=== PATIENT | male | born 1940 | race Caucasian/White ===

== ENCOUNTER 2020-01-21 10:25 | Outpatient (REF) | payer MEDICARE, SELFPAY ==
[2020-01-21 13:43] LABS: MANUAL DIFF FLAG NO
[2020-01-21 13:53] LABS: Basophils Absolute Auto 0.1 X10*3/uL (0.0-0.2); Basophils Percent Auto 0.7 % (0-2); Eosinophils Absolute Auto 0.1 X10*3/uL (0.0-0.4); Eosinophils Percent Auto 0.7 % (0-4); Hematocrit 42.9 % (42-52); Hemoglobin 13.6 g/dl (14.0-18.0); Imm Gran Abs Auto 0.02 X10*3/uL (0.00-0.03); Imm Gran Pct Auto 0.3 % (0.0-0.4); Lymphocytes Absolute Auto 1.9 X10*3/uL (1.2-4.9); Lymphocytes Percent Auto 27.9 % (20-40); Mean Corpuscular HGB Conc 31.7 g/dl (31.0-36.0); Mean Corpuscular Volume 81.9 fL (80-98); Mean Platelet Volume 10.6 fL (9.4-12.4); Monocytes Absolute Auto 0.7 X10*3/uL (0.1-1.2); Monocytes Percent Auto 10.2 % (2-11); Neutrophils Absolute Auto 4.1 X10*3/uL (2.0-8.3); Neutrophils Percent Auto 60.2 % (45-73); Platelet Count 311 X10*3/uL (160-400); Red Blood Count 5.24 X10*6/uL (4.60-5.80); Red Cell Distribution Width 14.4 % (11.0-16.0); White Blood Count 6.8 X10*3/uL (4.8-10.8)
[2020-01-21 14:15] LABS: Estimated Average Glucose 126 mg/dL
[2020-01-21 14:19] LABS: Anion Gap 15 (12-20); Blood Urea Nitrogen 19 mg/dL (9-16); Calcium 9.5 mg/dL (8.4-10.2); Carbon Dioxide 29 mmol/L (22-29); Chloride 98 mmol/L (96-108); Estimated Glomerular Filt Rate > 60; Glucose Random 100 mg/dL (60-115); Iron 73 mcg/dL (45-160); Percent Iron Saturation 18 % (15-50); Potassium 4.4 mmol/l (3.3-5.1); Sodium 138 mmol/L (135-145); Total Iron Binding Capacity 411 mcg/dL (228-428); Unsaturated Iron Binding 338 ug/dL
== END 2020-01-21 10:26 | disposition home or self-care (01) ==
LOC: HO.10HDL 10:25
PROVIDERS: PCP Internal Medicine; Visit Provider Internal Medicine
DX: E11.9 Type 2 diabetes mellitus without complications (principal); I25.10 Atherosclerotic heart disease of native coronary artery without angina pectoris; D64.9 Anemia, unspecified; I10 Essential (primary) hypertension
CPT/HCPCS: 36415; 80048; 83036; 83540; 85025

== ENCOUNTER 2020-09-08 08:30 | Outpatient (REF) | payer MEDICARE, SELFPAY ==
[2020-09-08 09:31] LABS: MANUAL DIFF FLAG NO
[2020-09-08 09:36] LABS: Basophils Absolute Auto 0.1 X10*3/uL (0.0-0.2); Basophils Percent Auto 0.8 % (0-2); Eosinophils Absolute Auto 0.1 X10*3/uL (0.0-0.4); Eosinophils Percent Auto 1.3 % (0-4); Hematocrit 41.6 % (42-52); Hemoglobin 13.2 g/dl (14.0-18.0); Imm Gran Abs Auto 0.03 X10*3/uL (0.00-0.03); Imm Gran Pct Auto 0.4 % (0.0-0.4); Lymphocytes Absolute Auto 2.6 X10*3/uL (1.2-4.9); Lymphocytes Percent Auto 30.8 % (20-40); Mean Corpuscular HGB Conc 31.7 g/dl (31.0-36.0); Mean Corpuscular Volume 82.1 fL (80-98); Monocytes Absolute Auto 0.8 X10*3/uL (0.1-1.2); Monocytes Percent Auto 9.9 % (2-11); Neutrophils Absolute Auto 4.8 X10*3/uL (2.0-8.3); Neutrophils Percent Auto 56.8 % (45-73); Platelet Count 276 X10*3/uL (160-400); Red Blood Count 5.07 X10*6/uL (4.60-5.80); Red Cell Distribution Width 14.7 % (11.0-16.0); White Blood Count 8.5 X10*3/uL (4.8-10.8)
[2020-09-08 10:11] LABS: Creatinine Urine 164.47 mg/dL
[2020-09-08 10:16] LABS: Alanine Aminotransferase 12 U/L (0-40); Albumin Level 4.1 g/dL (3.5-5.0); Alkaline Phosphatase 86 U/L (39-117); Anion Gap 15 (12-20); Aspartate Amino Transferase 15 U/L (5-37); Bilirubin Total 0.5 mg/dL (0.0-1.0); Blood Urea Nitrogen 18 mg/dL (9-16); Calcium 10.1 mg/dL (8.4-10.2); Carbon Dioxide 27 mmol/L (22-29); Chloride 103 mmol/L (96-108); Cholesterol 119 mg/dL; Estimated Glomerular Filt Rate > 60; Glucose Fasting 93 mg/dL (60-99); HDL Cholesterol 44 mg/dL; Iron 71 mcg/dL (45-160); LDL Cholesterol Calculated 58 mg/dl; Percent Iron Saturation 18 % (15-50); Potassium 4.3 mmol/L (3.3-5.1); Sodium 141 mmol/L (135-145); Total Iron Binding Capacity 400 mcg/dL (228-428); Triglycerides 87 mg/dL; Unsaturated Iron Binding 329 ug/dL
[2020-09-08 10:30] LABS: Vitamin D 25-OH Total 41.9 ng/mL (>30)
[2020-09-08 10:35] LABS: Estimated Average Glucose 126 mg/dL; Hemoglobin A1C 148.3616 umol/L
[2020-09-08 11:28] LABS: Vitamin B12 < 146 pg/mL (200-900)
== END 2020-09-08 08:31 | disposition home or self-care (01) ==
LOC: HO.LAB 08:30
PROVIDERS: PCP Internal Medicine; Visit Provider Internal Medicine
DX: Z12.5 Encounter for screening for malignant neoplasm of prostate (principal); I25.10 Atherosclerotic heart disease of native coronary artery without angina pectoris; I10 Essential (primary) hypertension; E78.00 Pure hypercholesterolemia, unspecified; N40.0 Benign prostatic hyperplasia without lower urinary tract symptoms; E11.9 Type 2 diabetes mellitus without complications; D64.9 Anemia, unspecified; E55.9 Vitamin D deficiency, unspecified
CPT/HCPCS: 36415; 80053; 80061; 82043; 82306; 82607; 83036; 83540; 84153; 85025

== ENCOUNTER 2021-05-29 09:41 | Outpatient (REF) | payer MEDICARE, SELFPAY ==
[2021-05-29 10:11] LABS: MANUAL DIFF FLAG NO
[2021-05-29 10:44] LABS: Basophils Absolute Auto 0.1 X10*3/uL (0.0-0.2); Basophils Percent Auto 0.8 % (0-2); Eosinophils Absolute Auto 0.1 X10*3/uL (0.0-0.4); Eosinophils Percent Auto 1.4 % (0-4); Hematocrit 41.8 % (42.0-52.0); Hemoglobin 13.2 g/dl (14.0-18.0); Imm Gran Abs Auto 0.03 X10*3/uL (0.00-0.03); Imm Gran Pct Auto 0.4 % (0.0-0.4); Lymphocytes Percent Auto 25.2 % (20-40); Mean Corpuscular HGB Conc 31.6 g/dl (31.0-36.0); Mean Corpuscular Hemoglobin 26.5 pg (27.0-33.0); Mean Corpuscular Volume 83.8 fL (80.0-98.0); Mean Platelet Volume 9.8 fL (9.4-12.4); Monocytes Absolute Auto 0.8 X10*3/uL (0.1-1.2); Neutrophils Absolute Auto 4.9 x10*3/uL (2.0-8.3); Neutrophils Percent Auto 62.2 % (45-73); Platelet Count 283 X10*3/uL (160-400); Red Blood Count 4.99 X10*6/uL (4.60-5.80); Red Cell Distribution Width 14.3 % (11.0-16.0); White Blood Count 7.9 X10*3/uL (4.8-10.8)
[2021-05-29 11:05] LABS: Estimated Average Glucose 123 mg/dL; Hemoglobin A1c % 5.9 %
[2021-05-29 11:23] LABS: Alanine Aminotransferase 17 U/L (0-40); Albumin Level 4.1 g/dL (3.5-5.0); Alkaline Phosphatase 83 U/L (39-117); Anion Gap 16 (12-20); Aspartate Amino Transferase 15 U/L (5-37); Bilirubin Total 0.8 mg/dL (0.0-1.0); Blood Urea Nitrogen 15 mg/dL (9-16); Calcium 9.5 mg/dL (8.4-10.2); Carbon Dioxide 27 mmol/L (22-29); Chloride 101 mmol/L (96-108); Estimated Glomerular Filt Rate > 60; Glucose Random 90 mg/dL (60-115); Potassium 4.3 mmol/L (3.3-5.1); Sodium 140 mmol/L (135-145); Total Protein 6.9 g/dL (6.5-8.0)
[2021-05-29 11:37] LABS: Vitamin B12 727 pg/mL (200-900)
[2021-05-29 12:28] LABS: Creatinine Urine 146.57 mg/dL; Microalbum/Creatinine Ratio Ur 4.7 ug/mg cr
== END 2021-05-29 09:42 | disposition home or self-care (01) ==
LOC: HO.LAB 09:41
PROVIDERS: PCP Internal Medicine; Visit Provider Internal Medicine
DX: E11.9 Type 2 diabetes mellitus without complications (principal); I10 Essential (primary) hypertension; I25.10 Atherosclerotic heart disease of native coronary artery without angina pectoris; E53.8 Deficiency of other specified B group vitamins
CPT/HCPCS: 36415; 80053; 82043; 82607; 83036; 85025

== ENCOUNTER 2021-07-13 20:02 | Emergency (ER) | payer MEDICARE, SELFPAY ==
--- NOTE | ~2021-07-13 | US_ITS ---
EXAMINATION: US ABDOMEN LIMITED CLINICAL INFORMATION: Right upper quadrant pain with food intake radiating to back. COMPARISON: None TECHNIQUE: Real-time imaging of the right upper quadrant abdominal viscera. FINDINGS: PANCREAS: The visualized proximal portion of the pancreas is unremarkable. The distal portion is obscured secondary to overlying bowel gas. LIVER: The liver is normal in size. The liver contour is normal. There is diffusely increased liver parenchymal echogenicity, consistent with hepatic steatosis. No focal hepatic lesion. There is no intrahepatic biliary duct dilatation seen. GALLBLADDER: Gallbladder is physiologically distended. No gallstones are seen. There is borderline gallbladder wall thickening. No pericholecystic fluid identified. Sonographic Arnett's sign is reportedly negative. COMMON BILE DUCT: Normal in caliber measuring 0.3 cm in diameter. RIGHT KIDNEY: No hydronephrosis. No renal calculi or focal parenchymal lesions. The kidney measures 9.9 cm in maximum dimension. FREE FLUID: None. US/US abdomen limited IMPRESSION: 1. No gallstones identified. Nonspecific borderline gallbladder wall thickening. 2. Increased hepatic echogenicity suspicious for steatosis.
--- NOTE | ~2021-07-13 | XR_ITS ---
EXAMINATION: XR CHEST CLINICAL INFORMATION: Chest pain COMPARISON: Chest x-ray 05/06/2014 TECHNIQUE: Frontal view of the chest was obtained. 9:45 PM FINDINGS: Status post median sternotomy. Heart size is normal. No pulmonary vascular congestion. Lungs are normally aerated. No pleural effusion or pneumothorax. XR/XR chest 1V IMPRESSION: No acute abnormality of chest.
[2021-07-13 21:25] VITALS: BP 120/75; PULSE 82; RESP 16; TEMP 37; O2SAT 98; BMI 28.3
--- NOTE | 2021-07-13 21:32 | ECG_ITS ---
Test Reason : CP Blood Pressure : / mmHG Vent. Rate : 078 BPM Atrial Rate : 078 BPM P-R Int : 188 ms QRS Dur : 086 ms QT Int : 364 ms P-R-T Axes : 050 046 003 degrees QTc Int : 414 ms Normal sinus rhythm Nonspecific ST changes Borderline ECG When compared with ECG of 11-JAN-2017 19:09, No significant changes seen Referred By: Generic ED Physician Electronically Signed By:Jay Gloria
[2021-07-13 21:43] LABS: MANUAL DIFF FLAG NO
[2021-07-13 22:03] LABS: Anion Gap 13 (12-20); Blood Urea Nitrogen 20 mg/dL (9-16); Calcium 9.6 mg/dL (8.4-10.2); Carbon Dioxide 29 mmol/L (22-29); Chloride 102 mmol/L (96-108); Creatinine Clr Calc Pharmacy 45.4; Estimated Glomerular Filt Rate > 60; Glucose Random 110 mg/dL (60-115); Potassium 3.7 mmol/L (3.3-5.1); Sodium 140 mmol/L (135-145); Troponin-I High Sensitivity < 3.5 ng/L (<3.5-35.0)
[2021-07-13 22:08] LABS: Basophils Absolute Auto 0.1 X10*3/uL (0.0-0.2); Basophils Percent Auto 1.3 % (0-2); Eosinophils Absolute Auto 0.1 X10*3/uL (0.0-0.4); Eosinophils Percent Auto 1.9 % (0-4); Hematocrit 39.8 % (42.0-52.0); Hemoglobin 12.9 g/dl (14.0-18.0); Imm Gran Abs Auto 0.02 X10*3/uL (0.00-0.03); Imm Gran Pct Auto 0.3 % (0.0-0.4); Lymphocytes Absolute Auto 2.6 X10*3/uL (1.2-4.9); Lymphocytes Percent Auto 36.8 % (20-40); Mean Corpuscular HGB Conc 32.4 g/dl (31.0-36.0); Mean Corpuscular Volume 83.4 fL (80.0-98.0); Mean Platelet Volume 9.9 fL (9.4-12.4); Monocytes Absolute Auto 1.1 X10*3/uL (0.1-1.2); Monocytes Percent Auto 14.9 % (2-11); Neutrophils Absolute Auto 3.2 x10*3/uL (2.0-8.3); Neutrophils Percent Auto 44.8 % (45-73); Platelet Count 245 X10*3/uL (160-400); Red Blood Count 4.77 X10*6/uL (4.60-5.80); Red Cell Distribution Width 13.9 % (11.0-16.0); White Blood Count 7.2 X10*3/uL (4.8-10.8)
--- NOTE | 2021-07-14 01:04 | ED_ITS ---
HPI - Chest Pain General Chief Complaint: Chest Pain Stated Complaint: Upper abd pain Time Seen by Provider: 07/14/21 00:55 Source: patient Mode of arrival: ambulatory Limitations: no limitations History of Present Illness HPI narrative: Patient comes to the emergency room complaining of right upper quadrant pain for 3 weeks. Patient states the pain is worse with eating, intermittent. However, the patient got worse today, started getting worse after eating around 15:00. Patient denies nausea vomiting or diarrhea, no fever chills, no flank pain, no UTI symptoms, no URI symptoms. Related Data Previous Rx's Medication Instructions Recorded omeprazole 20 mg capsule,delayed 20 mg PO DAILY #20 cap 07/14/21 release Allergies Allergy/AdvReac Type Severity Reaction Status Date / Time No Known Allergies Allergy Unknown NONE Verified 07/13/21 21:30 Review of Systems Review of Systems: Constitutional : No Weight loss, No Fever, No Chills, No Night Sweats, No Fatigue, No Malaise ENT/Mouth : No Hearing loss, No Ear Pain, No Nasal Congestion, No Sinus Pain, No Hoarseness, No sore throat, No Rhinorrhea, No Swallowing Difficulty Eyes: No Eye Pain, No Swelling, No Redness, No Foreign Body, No Discharge, No Vision Changes Cardiovascular : No Chest Pain, No SOB, No Dyspnea on Exertion, No Orthopnea, No Edema, No Palpitations Respiratory : No Cough, No Sputum, No Wheezing, No Smoke Exposure, No Dyspnea Gastrointestinal : No Nausea, No Vomiting, No Diarrhea, No Constipation, complaining of 3 weeks of intermittent right upper quadrant pain. No Hematochezia, No Melena Genitourinary : no irregular bleeding, No Dysuria, No Urinary Frequency, No Hematuria, No Urinary Incontinence, No Urgency, No Flank Pain, No Urinary Flow Changes, No Hesitancy Musculoskeletal : No joint pain, No Myalgias, No Joint Swelling Skin : No Skin Lesions, No rash Neuro : No Weakness, No Numbness, No Paresthesias, No Loss of Consciousness, No Dizziness, No Headache Psych : No Anxiety/Panic, No Depression, No SI/HI/AH/VH, No Social Issues, Heme/Lymph: No Bruising, No Bleeding,No Lymphadenopathy Endocrine : No Polyuria, No Polydipsia, No Temperature Intolerance PMFSH Past Medical History Medical History Diabetes HLD (hyperlipidemia) HTN (hypertension) Surgical History H/O heart artery stent Social History Social History Advance Directives: No Advance Directives Information Provided: Yes Physical Exam Vital Signs: Vital Signs: Last Vital Signs Temp 98.6 F 07/13/21 21:25 Pulse 82 07/13/21 21:25 Resp 16 07/13/21 21:25 BP 120/75 07/13/21 21:25 Pulse Ox 98 07/13/21 21:25 BMI result Body Mass Index 28.3 Const: Other: Appearance: Alert. Oriented X3. No acute distress. Eyes: Pupils equal, round and reactive to light. ENT: Pharynx normal. Neck: Normal inspection. Neck supple. No lymph nodes noted. No crepitus CVS: Normal heart rate and rhythm. Pulses normal. Normal S1 and S2 Respiratory: No respiratory distress. Breath sounds normal. No Wheezing. No ral es Abdomen: Soft , mild discomfort to palpation in the right upper quadrant, no epigastric pain, negative Arnett sign Skin: Skin warm and dry. Normal skin color. Normal skin turgor. Extremities: No lower extremity edema. No Lacerations. No Rash Neuro: Oriented X 3. No motor deficit. No sensory deficit. Moving all extremities. No slurred speech. CN 2 through 12 grossly intact Psych: calm, cooperative, normal affect Course Course Course Narrative: I discussed the labs and imaging with the patient, no acute findings. Patient likely has peptic ulcer disease. Patient will start treatment. Discussed with the patient that if this does not work, he will likely need an upper endoscopy. At this time, patient is asymptomatic. MDM - Chest Pain Lab Data Result diagrams: 07/13/21 21:39 07/13/21 21:39 Labs: Lab Results 07/13/21 07/13/21 07/13/21 Range/Units 21:39 21:39 21:39 WBC 7.2 (4.8-10.8) X10*3/uL RBC 4.77 (4.60-5.80) X10*6/uL Hgb 12.9 L (14.0-18.0) g/dl Hct 39.8 L (42.0-52.0) % MCV 83.4 (80.0-98.0) fL MCH 27.0 (27.0-33.0) pg MCHC 32.4 (31.0-36.0) g/dl RDW 13.9 (11.0-16.0) % Plt Count 245 (160-400) X10*3/uL MPV 9.9 (9.4-12.4) fL Immature Gran % (Auto) 0.3 (0.0-0.4) % Neut % (Auto) 44.8 L (45-73) % Lymph % (Auto) 36.8 (20-40) % [place] % (Auto) 14.9 H (2-11) % Eos % (Auto) 1.9 (0-4) % Baso % (Auto) 1.3 (0-2) % Lymph # (Auto) 2.6 (1.2-4.9) X10*3/uL [place] # (Auto) 1.1 (0.1-1.2) X10*3/uL Eos # (Auto) 0.1 (0.0-0.4) X10*3/uL Baso # (Auto) 0.1 (0.0-0.2) X10*3/uL Abs Immat Gran (auto) 0.02 (0.00-0.03) X10*3/uL Absolute Neuts (auto) 3.2 (2.0-8.3) x10*3/uL Absolute Nucleated RBC 0.000 (0.0-0.012) X10*3/uL Nucleated RBC % (auto) 0.0 (0.0-0.2) /100WBC Sodium 140 (135-145) mmol/L Potassium 3.7 (3.3-5.1) mmol/L Chloride 102 (96-108) mmol/L Carbon Dioxide 29 (22-29) mmol/L Anion Gap 13 (12-20) BUN 20 H (9-16) mg/dL Creatinine 1.11 (0.5-1.4) mg/dL Estim Creat Clear Calc 45.4 Estimated GFR > 60 Random Glucose 110 (60-115) mg/dL Calcium 9.6 (8.4-10.2) mg/dL Total Bilirubin 0.5 (0.0-1.0) mg/dL Direct Bilirubin 0.2 (0.0-0.5) mg/dL AST 13 (5-37) U/L ALT 10 (0-40) U/L Alkaline Phosphatase 78 (39-117) U/L Troponin I High Sens < 3.5 (<3.5-35.0) ng/L Total Protein 6.7 (6.5-8.0) g/dL Albumin 4.0 (3.5-5.0) g/dL Imaging Data US - abdomen: Radiologist's impression: PANCREAS: The visualized proximal portion of the pancreas is unremarkable. The distal portion is obscured secondary to overlying bowel gas. LIVER: The liver is normal in size. The liver contour is normal. There is diffusely increased liver parenchymal echogenicity, consistent with hepatic steatosis.? No focal hepatic lesion. There is no intrahepatic biliary duct dilatation seen. GALLBLADDER: Gallbladder is physiologically distended. No gallstones are seen. There is borderline gallbladder wall thickening. No pericholecystic fluid identified. Sonographic Arnett's sign is reportedly negative. COMMON BILE DUCT: Normal in caliber measuring 0.3 cm in diameter. RIGHT KIDNEY: No hydronephrosis. No renal calculi or focal parenchymal lesions. The kidney measures 9.9 cm in maximum dimension. FREE FLUID: None. US/US abdomen limited IMPRESSION: 1.? No gallstones identified. Nonspecific borderline gallbladder wall thickening. 2.? Increased hepatic echogenicity suspicious for steatosis. Discharge Plan Discharge Clinical Impression: Abdominal pain Patient Disposition: Home, Self-Care Instructions: Abdominal Pain (ED) Additional Instructions: Please follow-up with your primary care physician tomorrow. If you have any worsening or new symptoms, please return to the emergency room or call 911 Prescriptions: New omeprazole 20 mg capsule,delayed release(DR/EC) 20 mg PO DAILY Qty: 20 0RF
[2021-07-14 01:24] LABS: Alanine Aminotransferase 10 U/L (0-40); Alkaline Phosphatase 78 U/L (39-117); Aspartate Amino Transferase 13 U/L (5-37); Bilirubin Direct 0.2 mg/dL (0.0-0.5); Bilirubin Total 0.5 mg/dL (0.0-1.0); Total Protein 6.7 g/dL (6.5-8.0)
== END 2021-07-14 02:31 | disposition home or self-care (01) ==
PROVIDERS: Emergency Provider Emergency Medicine; PCP Internal Medicine
DX: R10.11 Right upper quadrant pain (principal); E11.9 Type 2 diabetes mellitus without complications; I10 Essential (primary) hypertension
CPT/HCPCS: 36415; 71045; 76705; 80048; 80076; 84484; 85025; 93005; 99283; 99284

== ENCOUNTER 2021-09-19 09:21 | Outpatient (REF) | payer MEDICARE, SELFPAY ==
[2021-09-19 09:29] LABS: MANUAL DIFF FLAG NO
[2021-09-19 10:12] LABS: Basophils Absolute Auto 0.1 X10*3/uL (0.0-0.2); Basophils Percent Auto 1.1 % (0-2); Eosinophils Absolute Auto 0.2 X10*3/uL (0.0-0.4); Eosinophils Percent Auto 2.3 % (0-4); Hematocrit 39.1 % (42.0-52.0); Hemoglobin 12.7 g/dl (14.0-18.0); Imm Gran Abs Auto 0.03 X10*3/uL (0.00-0.03); Imm Gran Pct Auto 0.4 % (0.0-0.4); Lymphocytes Absolute Auto 2.1 X10*3/uL (1.2-4.9); Lymphocytes Percent Auto 27.4 % (20-40); Mean Corpuscular HGB Conc 32.5 g/dl (31.0-36.0); Mean Corpuscular Hemoglobin 26.9 pg (27.0-33.0); Mean Corpuscular Volume 82.8 fL (80.0-98.0); Mean Platelet Volume 9.7 fL (9.4-12.4); Monocytes Absolute Auto 0.8 X10*3/uL (0.1-1.2); Monocytes Percent Auto 10.7 % (2-11); Neutrophils Absolute Auto 4.3 x10*3/uL (2.0-8.3); Neutrophils Percent Auto 58.1 % (45-73); Platelet Count 272 X10*3/uL (160-400); Red Blood Count 4.72 X10*6/uL (4.60-5.80); Red Cell Distribution Width 14.7 % (11.0-16.0); White Blood Count 7.5 X10*3/uL (4.8-10.8)
[2021-09-19 10:45] LABS: Estimated Average Glucose 117 mg/dL; Hemoglobin A1c % 5.7 %
[2021-09-19 10:55] LABS: Alanine Aminotransferase 14 U/L (0-40); Albumin Level 4.2 g/dL (3.5-5.0); Alkaline Phosphatase 81 U/L (39-117); Anion Gap 13 (12-20); Aspartate Amino Transferase 15 U/L (5-37); Bilirubin Total 0.8 mg/dL (0.0-1.0); Blood Urea Nitrogen 17 mg/dL (9-16); Calcium 9.4 mg/dL (8.4-10.2); Carbon Dioxide 26 mmol/L (22-29); Chloride 104 mmol/L (96-108); Cholesterol 127 mg/dL; Estimated Glomerular Filt Rate > 60; Glucose Fasting 93 mg/dL (60-99); HDL Cholesterol 40 mg/dL; LDL Cholesterol Calculated 72 mg/dl; Potassium 4.2 mmol/L (3.3-5.1); Sodium 139 mmol/L (135-145); Total Protein 6.8 g/dL (6.5-8.0); Triglycerides 79 mg/dL
[2021-09-19 11:08] LABS: Creatinine Urine 192.86 mg/dL; Microalbum/Creatinine Ratio Ur 5.1 ug/mg cr
[2021-09-19 11:18] LABS: Prostate Specific Antigen 5.17 ng/mL (<0.05-4.0)
== END 2021-09-19 09:22 | disposition home or self-care (01) ==
LOC: HO.LAB 09:21
PROVIDERS: PCP Internal Medicine; Visit Provider Internal Medicine
DX: I25.10 Atherosclerotic heart disease of native coronary artery without angina pectoris (principal); E11.9 Type 2 diabetes mellitus without complications; I10 Essential (primary) hypertension; E78.00 Pure hypercholesterolemia, unspecified; N40.0 Benign prostatic hyperplasia without lower urinary tract symptoms; Z12.5 Encounter for screening for malignant neoplasm of prostate
CPT/HCPCS: 36415; 80053; 80061; 82043; 83036; 84153; 85025

== ENCOUNTER 2021-12-04 12:43 | Outpatient (REF) | payer MEDICARE, SELFPAY ==
[2021-12-04 14:01] LABS: Estimated Average Glucose 120 mg/dL; Hemoglobin A1c % 5.8 %
[2021-12-04 14:34] LABS: Anion Gap 24 (12-20); Blood Urea Nitrogen 18 mg/dL (9-16); C Reactive Protein 0.11 mg/dL (< or = 0.50); Calcium 9.6 mg/dL (8.4-10.2); Carbon Dioxide 21 mmol/L (22-29); Chloride 99 mmol/L (96-108); Estimated Glomerular Filt Rate > 60; Glucose Random 120 mg/dL (60-115); Sodium 140 mmol/L (135-145)
[2021-12-06 08:47] LABS: Lyme Abs Screen <0.90 index
== END 2021-12-04 12:44 | disposition home or self-care (01) ==
LOC: HO.10HDL 12:43
PROVIDERS: Visit Provider Internal Medicine
DX: I25.10 Atherosclerotic heart disease of native coronary artery without angina pectoris (principal); E11.9 Type 2 diabetes mellitus without complications; I10 Essential (primary) hypertension; L98.9 Disorder of the skin and subcutaneous tissue, unspecified
CPT/HCPCS: 36415; 80048; 83036; 86140; 86617; 86618

== ENCOUNTER 2022-05-06 08:57 | Outpatient (REF) | payer MEDICARE, SELFPAY ==
[2022-05-06 09:20] LABS: MANUAL DIFF FLAG NO
[2022-05-06 09:37] LABS: Basophils Absolute Auto 0.1 X10*3/uL (0.0-0.2); Eosinophils Absolute Auto 0.2 X10*3/uL (0.0-0.4); Eosinophils Percent Auto 2.5 % (0-4); Hematocrit 38.6 % (42.0-52.0); Hemoglobin 12.3 g/dl (14.0-18.0); Imm Gran Abs Auto 0.02 X10*3/uL (0.00-0.03); Imm Gran Pct Auto 0.3 % (0.0-0.4); Lymphocytes Absolute Auto 2.3 X10*3/uL (1.2-4.9); Lymphocytes Percent Auto 31.4 % (20-40); Mean Corpuscular HGB Conc 31.9 g/dl (31.0-36.0); Mean Corpuscular Hemoglobin 25.9 pg (27.0-33.0); Mean Corpuscular Volume 81.3 fL (80.0-98.0); Mean Platelet Volume 9.5 fL (9.4-12.4); Monocytes Absolute Auto 0.7 X10*3/uL (0.1-1.2); Monocytes Percent Auto 10.1 % (2-11); Neutrophils Percent Auto 54.7 % (45-73); Platelet Count 258 X10*3/uL (160-400); Red Blood Count 4.75 X10*6/uL (4.60-5.80); Red Cell Distribution Width 13.9 % (11.0-16.0); White Blood Count 7.2 X10*3/uL (4.8-10.8)
[2022-05-06 09:50] LABS: Estimated Average Glucose 126 mg/dL; Total Hemoglobin (HGBA1C) 3241.9713 umol/L
[2022-05-06 10:07] LABS: Alanine Aminotransferase 13 U/L (0-40); Alkaline Phosphatase 79 U/L (39-117); Anion Gap 12 (12-20); Aspartate Amino Transferase 14 U/L (5-37); Bilirubin Total 0.8 mg/dL (0.0-1.0); Blood Urea Nitrogen 20 mg/dL (9-16); Calcium 9.3 mg/dL (8.4-10.2); Carbon Dioxide 28 mmol/L (22-29); Chloride 105 mmol/L (96-108); Estimated Glomerular Filt Rate > 60; Glucose Random 94 mg/dL (60-115); Potassium 3.9 mmol/L (3.3-5.1); Sodium 141 mmol/L (135-145); Total Protein 6.4 g/dL (6.5-8.0)
[2022-05-06 13:12] LABS: Creatinine Urine 110.84 mg/dL; Microalbum/Creatinine Ratio Ur 5.4 ug/mg cr
== END 2022-05-06 08:58 | disposition home or self-care (01) ==
LOC: HO.LAB 08:57
PROVIDERS: PCP Internal Medicine; Visit Provider Internal Medicine
DX: Z12.5 Encounter for screening for malignant neoplasm of prostate (principal); I25.10 Atherosclerotic heart disease of native coronary artery without angina pectoris; E11.9 Type 2 diabetes mellitus without complications; I10 Essential (primary) hypertension; R97.20 Elevated prostate specific antigen [PSA]
CPT/HCPCS: 36415; 80053; 82043; 83036; 84153; 85025

== ENCOUNTER 2022-06-06 12:27 | Outpatient (REF) | payer MEDICARE, SELFPAY ==
--- NOTE | ~2022-06-06 | XR_ITS ---
EXAMINATION: XR KNEE, LEFT CLINICAL INFORMATION: Pain COMPARISON: None available. TECHNIQUE: Four views of the left knee. FINDINGS: There is slight valgus angulation. Bone alignment is otherwise normal. No fracture or dislocation. 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 Small joint effusion. XR/XR knee LT 4V IMPRESSION: Arthritis and valgus angulation.
== END 2022-06-06 12:28 | disposition home or self-care (01) ==
LOC: HO.XRAY 12:27
PROVIDERS: PCP Internal Medicine; Visit Provider Internal Medicine
DX: M25.562 Pain in left knee (principal)
CPT/HCPCS: 73564

== ENCOUNTER 2022-10-22 09:33 | Outpatient (REF) | payer MEDICARE, SELFPAY ==
[2022-10-22 09:53] LABS: MANUAL DIFF FLAG NO
[2022-10-22 10:18] LABS: Basophils Absolute Auto 0.1 X10*3/uL (0.0-0.2); Eosinophils Absolute Auto 0.2 X10*3/uL (0.0-0.4); Eosinophils Percent Auto 1.8 % (0-4); Hematocrit 40.2 % (42.0-52.0); Hemoglobin 12.8 g/dl (14.0-18.0); Imm Gran Abs Auto 0.02 X10*3/uL (0.00-0.03); Imm Gran Pct Auto 0.2 % (0.0-0.4); Lymphocytes Absolute Auto 2.5 X10*3/uL (1.2-4.9); Lymphocytes Percent Auto 30.9 % (20-40); Mean Corpuscular HGB Conc 31.8 g/dl (31.0-36.0); Mean Corpuscular Hemoglobin 25.6 pg (27.0-33.0); Mean Corpuscular Volume 80.4 fL (80.0-98.0); Mean Platelet Volume 9.7 fL (9.4-12.4); Monocytes Absolute Auto 0.9 X10*3/uL (0.1-1.2); Monocytes Percent Auto 11.1 % (2-11); Neutrophils Absolute Auto 4.5 x10*3/uL (2.0-8.3); Platelet Count 262 X10*3/uL (160-400); Red Cell Distribution Width 15.3 % (11.0-16.0); White Blood Count 8.1 X10*3/uL (4.8-10.8)
[2022-10-22 10:29] LABS: Estimated Average Glucose 117 mg/dL; Hemoglobin A1c % 5.7 %
[2022-10-22 11:07] LABS: Alanine Aminotransferase 14 U/L (0-40); Alkaline Phosphatase 94 U/L (39-117); Anion Gap 14 (12-20); Aspartate Amino Transferase 15 U/L (5-37); Bilirubin Total 0.5 mg/dL (0.0-1.0); Blood Urea Nitrogen 19 mg/dL (9-16); Calcium 9.8 mg/dL (8.4-10.2); Carbon Dioxide 28 mmol/L (22-29); Chloride 103 mmol/L (96-108); Cholesterol 114 mg/dL; Estimated Glomerular Filt Rate 60; Glucose Fasting 96 mg/dL (60-99); HDL Cholesterol 41 mg/dL; LDL Cholesterol Calculated 62 mg/dl; Potassium 3.9 mmol/L (3.3-5.1); Sodium 141 mmol/L (135-145); Total Protein 7.1 g/dL (6.5-8.0); Triglycerides 59 mg/dL
[2022-10-22 11:21] LABS: Creatinine Urine 172.31 mg/dL; Microalbum/Creatinine Ratio Ur 3.4 ug/mg cr
== END 2022-10-22 09:34 | disposition home or self-care (01) ==
LOC: HO.LAB 09:33
PROVIDERS: PCP Internal Medicine; Visit Provider Internal Medicine
DX: I25.10 Atherosclerotic heart disease of native coronary artery without angina pectoris (principal); I10 Essential (primary) hypertension; E11.9 Type 2 diabetes mellitus without complications; E78.00 Pure hypercholesterolemia, unspecified
CPT/HCPCS: 36415; 80053; 80061; 82043; 83036; 85025

== ENCOUNTER 2022-12-05 23:02 | Emergency (ER) | payer MEDICARE, SELFPAY ==
--- NOTE | 2022-12-05 | ECG_ITS ---
Test Reason : CHEST PAIN Blood Pressure : / mmHG Vent. Rate : 078 BPM Atrial Rate : 078 BPM P-R Int : 162 ms QRS Dur : 080 ms QT Int : 384 ms P-R-T Axes : 025 043 046 degrees QTc Int : 437 ms Normal sinus rhythm Normal ECG When compared with ECG of 13-JUL-2021 21:30, Minimal criteria for Inferior infarct are no longer Present T wave inversion no longer evident in Inferior leads Referred By: Generic ED Physician Electronically Signed By:CICI LOZADA
[2022-12-05 23:19] VITALS: BP 167/83; PULSE 87; RESP 20; TEMP 36.6; O2SAT 98; BMI 25.6
[2022-12-05 23:27] LABS: Hematocrit 38.5 % (42.0-52.0); Hemoglobin 12.3 g/dl (14.0-18.0); Mean Corpuscular HGB Conc 31.9 g/dl (31.0-36.0); Mean Corpuscular Hemoglobin 25.8 pg (27.0-33.0); Mean Corpuscular Volume 80.7 fL (80.0-98.0); Mean Platelet Volume 9.4 fL (9.4-12.4); Platelet Count 239 X10*3/uL (160-400); Red Blood Count 4.77 X10*6/uL (4.60-5.80); Red Cell Distribution Width 14.8 % (11.0-16.0); White Blood Count 8.5 X10*3/uL (4.8-10.8)
[2022-12-05 23:41] LABS: Alanine Aminotransferase 15 U/L (0-40); Albumin Level 4.1 g/dL (3.5-5.0); Alkaline Phosphatase 101 U/L (39-117); Anion Gap 17 (12-20); Aspartate Amino Transferase 19 U/L (5-37); Bilirubin Total 0.3 mg/dL (0.0-1.0); Blood Urea Nitrogen 21 mg/dL (9-16); Calcium 9.3 mg/dL (8.4-10.2); Carbon Dioxide 23 mmol/L (22-29); Chloride 103 mmol/L (96-108); Creatinine Clr Calc Pharmacy 41.3; Estimated Glomerular Filt Rate > 60; Glucose Random 148 mg/dL (60-115); Potassium 3.8 mmol/L (3.3-5.1); Sodium 139 mmol/L (135-145); Total Protein 7.1 g/dL (6.5-8.0)
[2022-12-06] VITALS: BP 143/70; PULSE 74; RESP 16; TEMP 36.4; O2SAT 98
--- NOTE | 2022-12-06 00:18 | ED_ITS ---
HPI - Chest Pain General Chief Complaint: Chest Pain Stated Complaint: Chest pain Time Seen by Provider: 12/05/22 23:44 Source: patient and family Mode of arrival: ambulatory Limitations: no limitations History of Present Illness HPI narrative: Patient comes to the emergency room complaining of pain in his skin on the right side of the chest for 1 and half weeks. Initially, patient stated he fell a bit itchy and irritated, then became painful. Patient states that he has had a vesicular rash that is now crusted . Patient denies any actual chest pain or shortness of breath. Related Data Previous Rx's Medication Instructions Recorded omeprazole 20 mg capsule,delayed 20 mg PO DAILY #20 caps 07/14/21 release tramadol 50 mg tablet 50 mg PO BID PRN pain #7 tabs 12/06/22 Allergies Allergy/AdvReac Type Severity Reaction Status Date / Time No Known Allergies Allergy Unknown NONE Verified 07/13/21 21:30 Review of Systems 2 Review of Systems: Constitutional : No Weight loss, No Fever, No Chills, No Night Sweats, No Fatigue, No Malaise ENT/Mouth : No Hearing loss, No Ear Pain, No Nasal Congestion, No Sinus Pain, No Hoarseness, No sore throat, No Rhinorrhea, No Swallowing Difficulty Eyes: No Eye Pain, No Swelling, No Redness, No Foreign Body, No Discharge, No Vision Changes Cardiovascular : No Chest Pain, No SOB, No Dyspnea on Exertion, No Orthopnea, No Edema, No Palpitations Respiratory : No Cough, No Sputum, No Wheezing, No Smoke Exposure, No Dyspnea Gastrointestinal : No Nausea, No Vomiting, No Diarrhea, No Constipation, No abdominal Pain, No Hematochezia, No Melena Genitourinary : no irregular bleeding, No Dysuria, No Urinary Frequency, No Hematuria, No Urinary Incontinence, No Urgency, No Flank Pain, No Urinary Flow Changes, No Hesitancy Musculoskeletal : No joint pain, No Myalgias, No Joint Swelling Skin : Complaining of painful vesicular rash on the right side of the chest Neuro : No Weakness, No Numbness, No Paresthesias, No Loss of Consciousness, No Dizziness, No Headache Psych : No Anxiety/Panic, No Depression, No SI/HI/AH/VH, No Social Issues, Heme/Lymph: No Bruising, No Bleeding,No Lymphadenopathy Endocrine : No Polyuria, No Polydipsia, No Temperature Intolerance PMFSH Past Medical History Medical History HLD (hyperlipidemia) HTN (hypertension) Diabetes Surgical History H/O heart artery stent Social History Social History Advance Directives: No Advance Directives Information Provided: Yes Physical Exam 2 Vital Signs: Vital Signs: Last Vital Signs Temp 97.6 F 12/06/22 00:00 Pulse 74 12/06/22 00:00 Resp 16 12/06/22 00:00 BP 143/70 H 12/06/22 00:00 Pulse Ox 98 12/06/22 00:00 O2 Del Method Room Air 12/06/22 00:00 BMI result Body Mass Index 25.6 Const: Other: Appearance: Alert. Oriented X3. No acute distress. Eyes: Pupils equal, round and reactive to light. ENT: Pharynx normal. Neck: Normal inspection. Neck supple. No lymph nodes noted. No crepitus CVS: Normal heart rate and rhythm. Pulses normal. Normal S1 and S2 Respiratory: No respiratory distress. Breath sounds normal. No Wheezing. No rales Abdomen: Soft and nontender. No rigidity. No distention. Skin: Skin warm and dry. Patient has crusted lesions on the right side of the chest, no cellulitis Extremities: No lower extremity edema. No Lacerations. No Rash Neuro: Oriented X 3. No motor deficit. No sensory deficit. Moving all extremities. No slurred speech. CN 2 through 12 grossly intact Psych: calm, cooperative, normal affect Medical Decision Making Medical Decision Making MDM Narrative: -discussed with the patient his physical exam, patient in has shingles, the lesions as crusted over, overall, patient states the pain is not too bad but he still has discomfort. -when patient came in, he complained of chest pain, EKG was done, my interpretation: Normal sinus rhythm, heart rate 78, no ST segment depression or elevation, no T-wave inversion, QTC 437 -troponin negative -I consider starting antivirals. However, patient has been symptomatic for over week and half and without any medication patient started getting much better. Patient was given a dose of p.o. tramadol in the ED. Differential Diagnosis Differential Diagnoses: The differential diagnosis associated with the presentation includes (Shingles, contact dermatitis, ACS) Admission/Observation Consideration of admission/observation: Escalation of care including admission/observation considered Lab Data MDM Lab Attestation statement: I reviewed the patient's lab results. 12/05/22 23:22 12/05/22 23:22 Labs: Lab Results 12/05/22 Range/Units 23:22 WBC 8.5 (4.8-10.8) X10*3/uL RBC 4.77 (4.60-5.80) X10*6/uL Hgb 12.3 L (14.0-18.0) g/dl Hct 38.5 L (42.0-52.0) % MCV 80.7 (80.0-98.0) fL MCH 25.8 L (27.0-33.0) pg MCHC 31.9 (31.0-36.0) g/dl RDW 14.8 (11.0-16.0) % Plt Count 239 (160-400) X10*3/uL MPV 9.4 (9.4-12.4) fL Absolute Nucleated RBC 0.000 (0.0-0.012) X10*3/uL Nucleated RBC % (auto) 0.0 (0.0-0.2) /100WBC Sodium 139 (135-145) mmol/L Potassium 3.8 (3.3-5.1) mmol/L Chloride 103 (96-108) mmol/L Carbon Dioxide 23 (22-29) mmol/L Anion Gap 17 (12-20) BUN 21 H (9-16) mg/dL Creatinine 1.10 (0.5-1.4) mg/dL Estim Creat Clear Calc 41.3 Estimated GFR > 60 Random Glucose 148 H (60-115) mg/dL Calcium 9.3 (8.4-10.2) mg/dL Total Bilirubin 0.3 (0.0-1.0) mg/dL AST 19 (5-37) U/L ALT 15 (0-40) U/L Alkaline Phosphatase 101 (39-117) U/L Troponin I High Sens < 2.7 (<3.5-35.0) ng/L Total Protein 7.1 (6.5-8.0) g/dL Albumin 4.1 (3.5-5.0) g/dL Independent Interpretation I performed an independent interpretation of an: EKG Discharge Plan Discharge Clinical Impression: Jimbo Patient Disposition: Home, Self-Care Instructions: Jimbo (ED) Additional Instructions: Please follow-up with your primary care physician tomorrow. If you have any worsening or new symptoms, please return to the emergency room or call 911 Prescriptions: New tramadol 50 mg tablet 50 mg PO BID PRN (Reason: pain) Qty: 7 0RF No Action omeprazole 20 mg capsule,delayed release(DR/EC) 20 mg PO DAILY Qty: 20 0RF
[2022-12-06 00:35] LABS: Troponin-I High Sensitivity < 2.7 ng/L (<3.5-35.0)
[2022-12-06] MEDS: traMADoL HCL 50 MG TABLET PO (01:14)
== END 2022-12-06 01:35 | disposition home or self-care (01) ==
PROVIDERS: Emergency Provider Emergency Medicine; PCP Internal Medicine
DX: R07.89 Other chest pain (principal); Z79.899 Other long term (current) drug therapy
CPT/HCPCS: 36415; 80053; 84484; 85027; 93005; 99284; 99285

== ENCOUNTER 2022-12-17 08:16 | Outpatient (REF) | payer MEDICARE, SELFPAY ==
--- NOTE | ~2022-12-17 | US_ITS ---
EXAMINATION: US ABDOMEN COMPLETE CLINICAL INFORMATION: Right upper quadrant abdominal pain. COMPARISON: Abdominal ultrasound 07/14/2021. TECHNIQUE: Real-time imaging of the abdominal viscera. FINDINGS: PANCREAS: Normal. ABDOMINAL AORTA: Atherosclerotic aorta without aneurysm. INFERIOR VENA CAVA: Visualized portions are normal. LIVER: Normal. The liver is normal in size. The liver contour is normal. Parenchymal echogenicity is normal. No focal hepatic lesion. There is no intrahepatic biliary duct dilatation seen. GALLBLADDER: Normal. The gallbladder is physiologically distended without evidence of stones, sludge, polyps, wall thickening or pericholecystic fluid. COMMON BILE DUCT: Normal in caliber measuring 0.3 cm in diameter. RIGHT KIDNEY: Slightly small. No hydronephrosis. No renal calculi or focal parenchymal lesions. The kidney measures 8.9 cm in maximum dimension. LEFT KIDNEY: Normal. No hydronephrosis. No renal calculi or focal parenchymal lesions. The kidney measures 10.0 cm in maximum dimension. SPLEEN: Normal. The spleen measures 8.8 cm in maximum dimension. FREE FLUID: None. US/US abdomen complete IMPRESSION: No explanation for right upper quadrant abdominal pain.
== END 2022-12-17 08:17 | disposition home or self-care (01) ==
LOC: HO.US 08:16
PROVIDERS: PCP Internal Medicine; Visit Provider Internal Medicine
DX: R10.11 Right upper quadrant pain (principal)
CPT/HCPCS: 76700

== ENCOUNTER 2023-02-17 10:19 | Outpatient (REF) | payer MEDICARE, SELFPAY ==
[2023-02-17 13:25] LABS: MANUAL DIFF FLAG NO
[2023-02-17 13:43] LABS: Basophils Absolute Auto 0.1 X10*3/uL (0.0-0.2); Basophils Percent Auto 1.1 % (0-2); Eosinophils Absolute Auto 0.1 X10*3/uL (0.0-0.4); Eosinophils Percent Auto 1.1 % (0-4); Hematocrit 39.4 % (42.0-52.0); Hemoglobin 12.7 g/dl (14.0-18.0); Imm Gran Abs Auto 0.01 X10*3/uL (0.00-0.03); Imm Gran Pct Auto 0.1 % (0.0-0.4); Lymphocytes Absolute Auto 1.9 X10*3/uL (1.2-4.9); Lymphocytes Percent Auto 26.3 % (20-40); Mean Corpuscular HGB Conc 32.2 g/dl (31.0-36.0); Mean Corpuscular Hemoglobin 26.2 pg (27.0-33.0); Mean Corpuscular Volume 81.2 fL (80.0-98.0); Mean Platelet Volume 10.3 fL (9.4-12.4); Monocytes Absolute Auto 0.9 X10*3/uL (0.1-1.2); Monocytes Percent Auto 12.3 % (2-11); Neutrophils Absolute Auto 4.4 x10*3/uL (2.0-8.3); Neutrophils Percent Auto 59.1 % (45-73); Platelet Count 266 X10*3/uL (160-400); Red Blood Count 4.85 X10*6/uL (4.60-5.80); Red Cell Distribution Width 14.1 % (11.0-16.0); White Blood Count 7.4 X10*3/uL (4.8-10.8)
[2023-02-17 13:57] LABS: Estimated Average Glucose 126 mg/dL
[2023-02-17 14:10] LABS: Alanine Aminotransferase 13 U/L (0-40); Alkaline Phosphatase 84 U/L (39-117); Anion Gap 15 (12-20); Aspartate Amino Transferase 16 U/L (5-37); Bilirubin Total 0.5 mg/dL (0.0-1.0); Blood Urea Nitrogen 17 mg/dL (9-16); Calcium 9.6 mg/dL (8.4-10.2); Carbon Dioxide 26 mmol/L (22-29); Chloride 103 mmol/L (96-108); Estimated Glomerular Filt Rate > 60; Glucose Random 96 mg/dL (60-115); Iron 77 mcg/dL (45-160); Percent Iron Saturation 24 % (15-50); Potassium 3.8 mmol/L (3.3-5.1); Sodium 140 mmol/L (135-145); Total Iron Binding Capacity 326 mcg/dL (228-428); Total Protein 7.1 g/dL (6.5-8.0); Unsaturated Iron Binding 249 ug/dL
== END 2023-02-17 10:20 | disposition home or self-care (01) ==
LOC: HO.10HDL 10:19
PROVIDERS: Visit Provider Internal Medicine
DX: D64.9 Anemia, unspecified (principal); E78.00 Pure hypercholesterolemia, unspecified; E11.9 Type 2 diabetes mellitus without complications; I25.10 Atherosclerotic heart disease of native coronary artery without angina pectoris; I10 Essential (primary) hypertension
CPT/HCPCS: 36415; 80053; 83036; 83540; 85025

== ENCOUNTER 2023-05-02 11:10 | Outpatient (REF) | payer MEDICARE, SELFPAY ==
--- NOTE | ~2023-05-02 | XR_ITS ---
EXAMINATION: XR FOOT, LEFT CLINICAL INFORMATION: Left foot pain. COMPARISON: None available. TECHNIQUE: AP, lateral, and oblique views of the left foot. FINDINGS: Bones are diffusely demineralized. Extensive vascular calcifications. Minimal dorsal and plantar calcaneal spurring. Moderate degenerative changes at the dorsal aspect of the midfoot. Degenerative changes in the talonavicular and naviculocuneiform joints with hypertrophic change. Radiopaque marker placed by technologist to indicate the area of concern indicated by the patient along the medial aspect of the midfoot. Subtle lucency along the medial aspect of the first tarsometatarsal joint is of indeterminate age and etiology. XR/XR foot LT min 3V IMPRESSION: 1. Radiopaque marker placed by technologist to indicate the area of concern indicated by the patient along the medial aspect of the midfoot. Subtle lucency along the medial aspect of the first tarsometatarsal joint of indeterminate age and etiology. 2. Mild degenerative changes. 3. Bones are diffusely demineralized. Recommend follow-up imaging in 10-14 days if fracture is suspected.
[2023-05-02 11:29] LABS: MANUAL DIFF FLAG NO
[2023-05-02 12:06] LABS: Basophils Absolute Auto 0.1 X10*3/uL (0.0-0.2); Basophils Percent Auto 0.9 % (0-2); Eosinophils Absolute Auto 0.1 X10*3/uL (0.0-0.4); Eosinophils Percent Auto 1.6 % (0-4); Hematocrit 40.4 % (42.0-52.0); Hemoglobin 12.7 g/dl (14.0-18.0); Imm Gran Abs Auto 0.04 X10*3/uL (0.00-0.03); Imm Gran Pct Auto 0.5 % (0.0-0.4); Lymphocytes Absolute Auto 2.3 X10*3/uL (1.2-4.9); Lymphocytes Percent Auto 30.3 % (20-40); Mean Corpuscular HGB Conc 31.4 g/dl (31.0-36.0); Mean Corpuscular Hemoglobin 25.8 pg (27.0-33.0); Mean Corpuscular Volume 82.1 fL (80.0-98.0); Mean Platelet Volume 9.4 fL (9.4-12.4); Monocytes Absolute Auto 0.9 X10*3/uL (0.1-1.2); Monocytes Percent Auto 12.4 % (2-11); Neutrophils Absolute Auto 4.1 x10*3/uL (2.0-8.3); Neutrophils Percent Auto 54.3 % (45-73); Platelet Count 276 X10*3/uL (160-400); Red Blood Count 4.92 X10*6/uL (4.60-5.80); Red Cell Distribution Width 15.1 % (11.0-16.0); White Blood Count 7.5 X10*3/uL (4.8-10.8)
[2023-05-02 12:09] LABS: Alanine Aminotransferase 30 U/L (0-40); Alkaline Phosphatase 102 U/L (39-117); Anion Gap 14 (12-20); Aspartate Amino Transferase 23 U/L (5-37); Bilirubin Total 0.6 mg/dL (0.0-1.0); Blood Urea Nitrogen 16 mg/dL (9-16); C Reactive Protein 0.31 mg/dL (< or = 0.50); Carbon Dioxide 28 mmol/L (22-29); Chloride 102 mmol/L (96-108); Estimated Glomerular Filt Rate > 60; Glucose Random 90 mg/dL (60-115); Sodium 140 mmol/L (135-145); Total Protein 7.2 g/dL (6.5-8.0); Uric Acid 6.8 mg/dL (3.4-7.0)
== END 2023-05-02 11:11 | disposition home or self-care (01) ==
LOC: HO.LAB 11:10
PROVIDERS: PCP Internal Medicine; Visit Provider Internal Medicine
DX: M79.672 Pain in left foot (principal); I10 Essential (primary) hypertension; I25.10 Atherosclerotic heart disease of native coronary artery without angina pectoris; E11.9 Type 2 diabetes mellitus without complications
CPT/HCPCS: 36415; 73630; 80053; 82550; 84550; 85025; 86140

== ENCOUNTER 2023-07-17 08:27 | Outpatient (REF) | payer MEDICARE, SELFPAY ==
[2023-07-17 08:38] LABS: MANUAL DIFF FLAG NO
[2023-07-17 09:06] LABS: Basophils Absolute Auto 0.1 X10*3/uL (0.0-0.2); Basophils Percent Auto 1.1 % (0-2); Eosinophils Absolute Auto 0.2 X10*3/uL (0.0-0.4); Eosinophils Percent Auto 2.2 % (0-4); Hematocrit 37.2 % (42.0-52.0); Hemoglobin 12.2 g/dl (14.0-18.0); Imm Gran Abs Auto 0.01 X10*3/uL (0.00-0.03); Imm Gran Pct Auto 0.1 % (0.0-0.4); Lymphocytes Absolute Auto 2.3 X10*3/uL (1.2-4.9); Mean Corpuscular HGB Conc 32.8 g/dl (31.0-36.0); Mean Corpuscular Hemoglobin 26.3 pg (27.0-33.0); Mean Corpuscular Volume 80.2 fL (80.0-98.0); Mean Platelet Volume 9.5 fL (9.4-12.4); Monocytes Absolute Auto 0.9 X10*3/uL (0.1-1.2); Monocytes Percent Auto 12.2 % (2-11); Neutrophils Absolute Auto 4.1 x10*3/uL (2.0-8.3); Neutrophils Percent Auto 54.4 % (45-73); Platelet Count 233 X10*3/uL (160-400); Red Blood Count 4.64 X10*6/uL (4.60-5.80); Red Cell Distribution Width 13.9 % (11.0-16.0); White Blood Count 7.6 X10*3/uL (4.8-10.8)
[2023-07-17 09:14] LABS: Estimated Average Glucose 128 mg/dL; Hemoglobin A1c % 6.1 % (<6.0)
[2023-07-17 09:41] LABS: Anion Gap 15 (12-20); Blood Urea Nitrogen 17 mg/dL (9-16); Calcium 9.7 mg/dL (8.4-10.2); Carbon Dioxide 26 mmol/L (22-29); Chloride 103 mmol/L (96-108); Estimated Glomerular Filt Rate > 60; Glucose Random 94 mg/dL (60-115); Iron 46 mcg/dL (45-160); Percent Iron Saturation 13 % (15-50); Potassium 3.8 mmol/L (3.3-5.1); Sodium 140 mmol/L (135-145); Total Iron Binding Capacity 359 mcg/dL (228-428); Unsaturated Iron Binding 313 ug/dL
== END 2023-07-17 08:28 | disposition home or self-care (01) ==
LOC: HO.LAB 08:27
PROVIDERS: PCP Internal Medicine; Visit Provider Internal Medicine
DX: D64.9 Anemia, unspecified (principal); I25.10 Atherosclerotic heart disease of native coronary artery without angina pectoris; I10 Essential (primary) hypertension; E11.9 Type 2 diabetes mellitus without complications
CPT/HCPCS: 36415; 80048; 83036; 83540; 85025

== ENCOUNTER 2023-12-24 09:22 | Outpatient (REF) | payer MEDICARE, SELFPAY ==
[2023-12-24 09:55] LABS: MANUAL DIFF FLAG NO
[2023-12-24 10:32] LABS: Basophils Absolute Auto 0.1 X10*3/uL (0.0-0.2); Basophils Percent Auto 1.2 % (0-2); Eosinophils Absolute Auto 0.1 X10*3/uL (0.0-0.4); Eosinophils Percent Auto 1.7 % (0-4); Hematocrit 40.5 % (42.0-52.0); Hemoglobin 13.1 g/dl (14.0-18.0); Imm Gran Abs Auto 0.01 X10*3/uL (0.00-0.03); Imm Gran Pct Auto 0.2 % (0.0-0.4); Lymphocytes Percent Auto 31.1 % (20-40); Mean Corpuscular HGB Conc 32.3 g/dl (31.0-36.0); Mean Corpuscular Volume 80.4 fL (80.0-98.0); Mean Platelet Volume 9.3 fL (9.4-12.4); Monocytes Absolute Auto 0.8 X10*3/uL (0.1-1.2); Neutrophils Absolute Auto 3.5 x10*3/uL (2.0-8.3); Neutrophils Percent Auto 53.8 % (45-73); Platelet Count 241 X10*3/uL (160-400); Red Blood Count 5.04 X10*6/uL (4.60-5.80); Red Cell Distribution Width 15.3 % (11.0-16.0); White Blood Count 6.4 X10*3/uL (4.8-10.8)
[2023-12-24 10:45] LABS: Appearance Urine Clear; Color Urine Yellow; Glucose Urine UA Negative (Negative); Leukocyte Esterase Urine Negative (Negative); Nitrite Urine Negative (Negative); PH 6.5 (5.0-9.0); Specific Gravity - Urine 1.015 (1.005-1.025); Urine Blood Negative (Negative); Urine Ketones Negative (Negative); Urine Protein Negative (Neg-Trace)
[2023-12-24 10:49] LABS: Estimated Average Glucose 123 mg/dL; Hemoglobin A1C 141.1689 umol/L; Hemoglobin A1c % 5.9 % (<6.0); Total Hemoglobin (HGBA1C) 3402.2166 umol/L
[2023-12-24 11:16] LABS: Alanine Aminotransferase 23 U/L (0-40); Albumin Level 4.1 g/dL (3.5-5.0); Alkaline Phosphatase 97 U/L (39-117); Anion Gap 12 (12-20); Aspartate Amino Transferase 20 U/L (5-37); Bilirubin Total 0.7 mg/dL (0.0-1.0); Blood Urea Nitrogen 18 mg/dL (9-16); Calcium 10.1 mg/dL (8.4-10.2); Carbon Dioxide 30 mmol/L (22-29); Chloride 102 mmol/L (96-108); Cholesterol 123 mg/dL (<200); Estimated Glomerular Filt Rate 58; Glucose Fasting 102 mg/dL (60-99); HDL Cholesterol 44 mg/dL (>40); LDL Cholesterol Calculated 63 mg/dL (<100); Sodium 140 mmol/L (135-145); Total Protein 7.1 g/dL (6.5-8.0); Triglycerides 81 mg/dL (<150)
[2023-12-24 11:25] LABS: Prostate Specific Antigen 7.94 ng/mL (<0.05-4.0)
[2023-12-24 11:33] LABS: Creatinine Urine 140.13 mg/dL; Microalbumin Urine < 5.0 mg/L
== END 2023-12-24 09:23 | disposition home or self-care (01) ==
LOC: HO.LAB 09:22
PROVIDERS: PCP Internal Medicine; Visit Provider Internal Medicine
DX: E11.9 Type 2 diabetes mellitus without complications (principal); I10 Essential (primary) hypertension; E78.00 Pure hypercholesterolemia, unspecified; Z12.5 Encounter for screening for malignant neoplasm of prostate
CPT/HCPCS: 36415; 80053; 80061; 81003; 82043; 82570; 83036; 84153; 85025

== ENCOUNTER 2024-07-21 14:31 | Outpatient (AMB) | payer MEDICARE, SELFPAY ==
--- NOTE | 2024-07-21 14:33 | A.OFFPC_ITS ---
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 Accompanied by: Self / Same As Patient Allergies No Known Allergies Allergy (Unknown, Verified 07/21/24 14:33) NONE Medication List - Last Reconciled 07/21/24 by ALBERT Hernandez atorvastatin 20 mg PO BEDTIME betamethasone dipropionate 0.05% appl topical clotrimazole-betamethasone 1-0.05 % appl topical BID PRN hydrochlorothiazide 12.5 mg PO DAILY losartan 25 mg PO DAILY metformin 1,000 mg PO BID metoprolol succinate ER 100 mg PO DAILY HPI HPI Comments History of Present Illness Details 83 year old male with history of hld, ht n, controlled type 2 diabetes complicated by bilateral cataracts, and CAD w/ history of CABG x4 in 1997 at [facility] presents to the office today for routine follow-up and to establish care. He reports he is doing well overall. 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 He is able to perform activities of daily living without difficulty. He does have healthcare proxy who is his daughter. He has now completed MOLST form. He did have elevated PSA and is currently following with Urology. Denies history of prostate cancer. He was previously following up [facility] for management of his coronary artery disease but no longer follows. He has not had any recurrent symptoms including chest pain. No shortness a breath, lightheadedness. He is compliant with all medications. 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 Elevated PSA Anemia of chronic disease HLD (hyperlipidemia) HTN (hypertension) Diabetes Surgical History H/O heart artery stent Review of Systems Const All systems reviewed & are unremarkable except as noted in HPI and below Physical exam (Primary Care) Vital Signs: Last Vital Signs Temp 97.7 F 07/21/24 14:38 Pulse 73 07/21/24 14:38 Resp 16 07/21/24 14:38 BP 122/64 07/21/24 14:38 Pulse Ox 99 07/21/24 14:38 Oxygen Delivery Method Room Air 07/21/24 14:38 BMI result Body Mass Index 26.7 Const Other: Constitutional - Awake and Alert, No apparent distress Eyes - PERRLA, EOMI Cardiovascular - S1S2, RRR, No edema. 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 Will update hemoglobin A1c today which is ordered. Continue checking glucose levels. Continue metformin 1000 mg twice daily. Continue diabetic diet. Up-to-date with diabetic eye exams (2) HLD (hyperlipidemia): Code(s): E78.5 - Hyperlipidemia, unspecified Category: Medical Plan: Lipid panel ordered. Continue atorvastatin 20 mg bedtime. Low-fat diet advised. (3) HTN (hypertension): Code(s): I10 - Essential (primary) hypertension Category: Medical Plan: Controlled at 122/64. Continue hydrochlorothiazide and losartan as well as metoprolol. Will assess renal function and electrolyte levels today. Low- sodium diet advised (4) Anemia of chronic disease: Code(s): D63.8 - Anemia in other chronic diseases classified elsewhere Category: Medical Plan: CBC ordered to evaluate chronic anemia. Will also check iron panel. Though suspect this is related to chronic disease. (5) Elevated PSA: Code(s): R97.20 - Elevated prostate specific antigen [PSA] Category: Medical Plan: Repeat PSA ordered. Follow-up with urology as scheduled. 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 (7) Cardiac murmur: Code(s): R01.1 - Cardiac murmur, unspecified Category: Medical Plan: Echocardiogram ordered. Plan Follow-up in 4 months. Labs to be completed following visit. Echocardiogram ordered to further evaluate cardiac murmur noted on exam. Continue following with ophthalmology for diabetic eye exams. Orders: Orders Complete Blood Count Auto Diff Today D63.8 - Anemia in other chronic diseases classified elsewhere, E11.9 - Type 2 diabetes mellitus without complications, E78.5 - Hyperlipidemia, unspecified, I10 - Essential (primary) hypertension IRON PROFILE Today D63.8 - Anemia in other chronic diseases classified elsewhere, E11.9 - Type 2 diabetes mellitus without complications, E78.5 - Hyperlipidemia, unspecified, I10 - Essential (primary) hypertension Prostate Specific Antigen Today R97.20 - Elevated prostate specific antigen [PSA] Basic Metabolic Panel Today D63.8 - Anemia in other chronic diseases classified elsewhere, E11.9 - Type 2 diabetes mellitus without complications, E78.5 - Hyperlipidemia, unspecified, I10 - Essential (primary) hypertension Liver Panel Today D63.8 - Anemia in other chronic diseases classified elsewhere, E11.9 - Type 2 diabetes mellitus without complications, E78.5 - Hyperlipidemia, unspecified, I10 - Essential (primary) hypertension Lipid Panel Today D63.8 - Anemia in other chronic diseases classified elsewhere, E11.9 - Type 2 diabetes mellitus without complications, E78.5 - Hyperlipidemia, unspecified, I10 - Essential (primary) hypertension Hemoglobin A1c Today D63.8 - Anemia in other chronic diseases classified elsewhere, E11.9 - Type 2 diabetes mellitus without complications, E78.5 - Hyperlipidemia, unspecified, I10 - Essential (primary) hypertension TSH reflex Free T4 Today D63.8 - Anemia in other chronic diseases classified elsewhere, E11.9 - Type 2 diabetes mellitus without complications, E78.5 - Hyperlipidemia, unspecified, I10 - Essential (primary) hypertension Medications: Discontinued omeprazole Discontinued Reason: Patient no longer taking 20 mg PO DAILY 20 caps 0RF tramadol Discontinued Reason: Patient no longer taking 50 mg PO BID PRN 7 tabs 0RF pain
[2024-07-21 14:38] VITALS: BP 122/64; PULSE 73; RESP 16; TEMP 36.5; O2SAT 99; BMI 26.7
== END 2024-07-21 14:57 | disposition home or self-care (01) ==
LOC: HO.HMCHD 14:31
PROVIDERS: PCP Internal Medicine; Visit Provider Physician Assistant
DX: E11.69 Type 2 diabetes mellitus with other specified complication (principal); E78.5 Hyperlipidemia, unspecified; I10 Essential (primary) hypertension; D63.8 Anemia in other chronic diseases classified elsewhere; R97.20 Elevated prostate specific antigen [PSA]; R01.1 Cardiac murmur, unspecified

== ENCOUNTER → 2024-07-21 14:31 | Outpatient (BNVA) | payer MEDICARE, SELFPAY | PROVIDERS: PCP Internal Medicine; Visit Provider Physician Assistant | DX: E11.36 Type 2 diabetes mellitus with diabetic cataract (principal); H26.9 Unspecified cataract; E78.5 Hyperlipidemia, unspecified; I10 Essential (primary) hypertension; D63.8 Anemia in other chronic diseases classified elsewhere; R97.20 Elevated prostate specific antigen [PSA]; R01.1 Cardiac murmur, unspecified; Z79.84 Long term (current) use of oral hypoglycemic drugs; Z79.899 Other long term (current) drug therapy | CPT/HCPCS: 99202 ==

== ENCOUNTER 2024-08-10 08:27 | Outpatient (REF) | payer MEDICARE, SELFPAY ==
[2024-08-10 10:33] LABS: MANUAL DIFF FLAG NO
[2024-08-10 10:45] LABS: Basophils Absolute Auto 0.1 X10*3/uL (0.0-0.2); Basophils Percent Auto 0.8 % (0-2); Eosinophils Absolute Auto 0.1 X10*3/uL (0.0-0.4); Eosinophils Percent Auto 1.6 % (0-4); Hematocrit 40.1 % (42.0-52.0); Hemoglobin 13.2 g/dl (14.0-18.0); Imm Gran Abs Auto 0.02 X10*3/uL (0.00-0.03); Imm Gran Pct Auto 0.3 % (0.0-0.4); Lymphocytes Absolute Auto 2.5 X10*3/uL (1.2-4.9); Lymphocytes Percent Auto 30.9 % (20-40); Mean Corpuscular HGB Conc 32.9 g/dl (31.0-36.0); Mean Corpuscular Hemoglobin 26.7 pg (27.0-33.0); Mean Platelet Volume 10.4 fL (9.4-12.4); Monocytes Absolute Auto 0.9 X10*3/uL (0.1-1.2); Monocytes Percent Auto 11.3 % (2-11); Neutrophils Absolute Auto 4.4 x10*3/uL (2.0-8.3); Neutrophils Percent Auto 55.1 % (45-73); Platelet Count 233 X10*3/uL (160-400); Red Blood Count 4.95 X10*6/uL (4.60-5.80); Red Cell Distribution Width 14.5 % (11.0-16.0)
[2024-08-10 10:55] LABS: Estimated Average Glucose 128 mg/dL; Hemoglobin A1C 150.7548 umol/L; Hemoglobin A1c % 6.1 % (<6.0)
[2024-08-10 11:38] LABS: Alanine Aminotransferase 23 U/L (0-40); Albumin Level 4.2 g/dL (3.5-5.0); Alkaline Phosphatase 97 U/L (39-117); Anion Gap 10 (12-20); Aspartate Amino Transferase 24 U/L (5-37); Bilirubin Direct 0.2 mg/dL (0.0-0.5); Bilirubin Total 0.6 mg/dL (0.0-1.0); Blood Urea Nitrogen 21 mg/dL (9-16); Calcium 9.4 mg/dL (8.4-10.2); Carbon Dioxide 29 mmol/L (22-29); Chloride 103 mmol/L (96-108); Cholesterol 114 mg/dL (<200); Estimated Glomerular Filt Rate > 60; Glucose Random 109 mg/dL (60-115); HDL Cholesterol 40 mg/dL (>40); Iron 103 mcg/dL (45-160); LDL Cholesterol Calculated 57 mg/dL (<100); Percent Iron Saturation 30 % (15-50); Potassium 4.1 mmol/L (3.3-5.1); Sodium 138 mmol/L (135-145); TSH reflex Free T4 0.83 uIU/mL (0.32-4.0); Total Iron Binding Capacity 340 mcg/dL (228-428); Triglycerides 88 mg/dL (<150); Unsaturated Iron Binding 237 ug/dL
[2024-08-10 12:03] LABS: Prostate Specific Antigen 8.34 ng/mL (<0.05-4.0)
== END 2024-08-10 08:28 | disposition home or self-care (01) ==
LOC: HO.10HDL 08:27
PROVIDERS: Visit Provider Physician Assistant
DX: E11.22 Type 2 diabetes mellitus with diabetic chronic kidney disease (principal); D63.8 Anemia in other chronic diseases classified elsewhere; I12.9 Hypertensive chronic kidney disease with stage 1 through stage 4 chronic kidney disease, or unspecified chronic kidney disease; E78.5 Hyperlipidemia, unspecified; R97.20 Elevated prostate specific antigen [PSA]; N18.9 Chronic kidney disease, unspecified; Z12.5 Encounter for screening for malignant neoplasm of prostate
CPT/HCPCS: 36415; 80048; 80061; 80076; 83036; 83540; 84153; 84443; 85025

== ENCOUNTER 2024-08-13 13:58 | Outpatient (AMB) | payer MEDICARE, SELFPAY ==
--- NOTE | 2024-08-13 12:40 | AM.OFFVISMDC ---
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
[2024-08-13 14:05] VITALS: BP 116/70; PULSE 86; RESP 16; TEMP 36.4; O2SAT 97; BMI 27.1
--- NOTE | 2024-08-13 14:20 | MHC.PC.OV ---
Vital Signs 08/13/24 14:05 Height 5 ft 2 in Weight 67.132 kg BMI 27.1 BP 116/70 Respiration 16 Pulse 86 Pulse Source Pulse Oximeter Temp 97.6 F Temp Source Temporal Artery Scan Pulse Oximetry (%) 97 Oxygen Delivery Method Room Air Intake Visit Reasons: F/U from Home Annual Wellness Appt Allergies No Known Allergies Allergy (Unknown, Verified 08/13/24 14:01) NONE HPI HPI Comments History of Present Illness Details 83 year old male with history of type 2 dm (controlled), htn, hld presents to the office for follow up. He recently had annual wellness visit at home and RN called reporting CYNDEE results RLE 0.97, LLE .035. He has no prior history of PAD. Per the nurse feet are cool to touch . The patient reports RLE is weak following polio as a child, but denies any claudication symptoms. There is BLE edema. He has sensation in his feet and does not feel like his feet are cold. He is on baby asa, statin. Last A1c 6.1%, BP controlled. ROS: General: No fevers, malaise, unintentional weight loss HEENT: No blurred vision, diplopia. No sore throat, nasal congestion, rhinorrhea, sinus pain, ear pain Cardiovascular: No chest pain, palpitations. See HPI Respiratory: No shortness of breath, wheezing, cough MSK: No myalgia, back pain Neuro: No headaches, paresthesias. see hpi Skin: No rashes or lesions EXAM: Constitutional - Awake and Alert, No apparent distress Eyes - PERRLA, EOMI Cardiovascular - S1S2, RRR. 2+ ble edema. 1+ R pedal pulse, unable to palpate L pedal pulse but foot is warm with cap refill <2sec. Distal left foot with dusky erythema Respiratory - Normal lung expansion, Normal respiratory effort, No respiratory distress, CTA bilaterally Extremities - no calf tenderness bilaterally Skin - Warm/Dry Neurological - Alert & oriented x3. 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 Elevated PSA Anemia of chronic disease HLD (hyperlipidemia) HTN (hypertension) Diabetes Surgical History H/O heart artery stent Physical exam (Primary Care) Vital Signs: Last Vital Signs Temp 97.6 F 08/13/24 14:05 Pulse 86 08/13/24 14:05 Resp 16 08/13/24 14:05 BP 116/70 08/13/24 14:05 Pulse Ox 97 08/13/24 14:05 Oxygen Delivery Method Room Air 08/13/24 14:05 BMI result Body Mass Index 27.1 Coding Level of Care Code Est Pt Level 4 (46227) Complex EM visit Add On G2211 Diagnoses PAD (peripheral artery disease) I73.9 HLD (hyperlipidemia) E78.5 HTN (hypertension) I10 Diabetes E11.9 Assessment & Plan Assessment & Plan (1) PAD (peripheral artery disease): Code(s): I73.9 - Peripheral vascular disease, unspecified Category: Medical Plan: Stable, no claudication. Reviewed results of RN AWV at home showing Left cyndee 0.23. L foot is dusky with barely palpable pedal pulse though is warm with normal cap refill time. CYNDEE/arterial duplex ordered. Referral to vascular surgery placed. Continue baby asa. Lipids at goal, continue statin, DM controlled. BP controlled (2) HLD (hyperlipidemia): Code(s): E78.5 - Hyperlipidemia, unspecified Category: Medical Plan: Controlled. Continue atorvastatin (3) HTN (hypertension): Code(s): I10 - Essential (primary) hypertension Category: Medical Plan: Controlled. Continue metoprolol, losartan, hydrochlorothiazide (4) Diabetes: Code(s): E11.9 - Type 2 diabetes mellitus without complications Category: Medical Plan: Controlled. Continue metformin Orders: Orders US CYNDEE complete Today I73.9 - Peripheral vascular disease, unspecified Basic Metabolic Panel 5 Months E11.9 - Type 2 diabetes mellitus without complications, I10 - Essential (primary) hypertension Hemoglobin A1c 5 Months E11.9 - Type 2 diabetes mellitus without complications, I10 - Essential (primary) hypertension Referrals Vascular Surgery Referral I73.9 - Peripheral vascular disease, unspecified
== END 2024-08-13 14:29 | disposition home or self-care (01) ==
PROVIDERS: PCP Internal Medicine; Visit Provider Physician Assistant
DX: I73.9 Peripheral vascular disease, unspecified (principal); E11.69 Type 2 diabetes mellitus with other specified complication; E78.5 Hyperlipidemia, unspecified; I10 Essential (primary) hypertension

== ENCOUNTER → 2024-08-13 13:58 | Outpatient (BNVA) | payer MEDICARE, SELFPAY | PROVIDERS: PCP Internal Medicine; Visit Provider Physician Assistant | DX: I10 Essential (primary) hypertension (principal); E78.5 Hyperlipidemia, unspecified; E11.51 Type 2 diabetes mellitus with diabetic peripheral angiopathy without gangrene | CPT/HCPCS: 99212 ==

== ENCOUNTER 2024-08-31 09:41 | Outpatient (AMB) | payer MEDICARE, SELFPAY ==
--- NOTE | 2024-08-31 09:47 | A.OFFVIS_ITS ---
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 Patient has some swelling on both legs. 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 He had an in-home assessment for his insurance and he was found to have RLE CYNDEE of 0.97 and LLE CYNDEE of 0.35; the nurse also commented that his feet felt very cool to the touch. He does have a hx of polio as a child and has some residual RLE weakness, but does not impede his ambulation. He states he does get bilateral lower extremity swelling (R>L); usually is weather dependent. He also states, that in 1997, he had veins harvested in his right upper leg for a CABGx4. He denies any claudication symptoms. He denies any leg pain, especially when walking; he states his knees or hips hurt, but not calves/feet/muscles. He denies any numbness or tingling in his feet. He states that his feet, particularly on the bottom of his feet, have been cold for his whole life. He denies any discoloration of his feet. He is a well controlled diabetic, with an A1C of 6.1% on 08/10/24. He has never smoked. 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 Elevated PSA Anemia of chronic disease HLD (hyperlipidemia) HTN (hypertension) Diabetes Surgical History H/O heart artery stent Review of Systems Const Reports as per HPI and Denies weakness ENT Reports Normal hearing present and Denies dizziness Card Reports as per HPI, Denies chest pain, Denies chest pain at rest, Denies chest pain with activity, Denies dyspnea and Denies dyspnea on exertion Resp Reports as per HPI, Denies cough, Denies dyspnea and Denies dyspnea on exertion GI Reports as per HPI, Denies abdominal pain, Denies nausea and Denies vomiting Musc Denies numbness Skin/Breast Reports as per HPI, Denies erythema and Denies wounds Neuro Reports Normal hearing present, Denies dizziness, Denies numbness, Denies Sensory deficit (Neuro) and Denies weakness Psych Reports no additional complaints Endo Reports no additional complaints Physical Exam Const General: healthy appearing and no acute distress Orientation/consciousness: patient oriented x3 HEENT Head: Yes normal to inspection Ears: hearing grossly normal bilaterally Mouth: Normal oral and palatal mucosa present Resp Effort & Inspection: normal respiratory effort and able to speak in complete sentences Auscultation: clear to auscultation bilaterally Cardio Jugular venous distension: no JVD Rate: regular rate Rhythm: regular rhythm Heart sounds: S1 normal heart sound present and S2 normal heart sound present Bruits: no abdominal aortic bruits, no carotid bruits, no femoral bruits and no renal bruits Peripheral pulses: Peripheral pulses 2+ throughout GI Inspection: Yes normal to inspection Palpation (GI): No Abdominal aortic bruit present Skin General skin exam: no rashes or lesions noted Wounds: no wounds Hair: normal Neuro General: patient oriented x3 Cranial nerves: Yes Normal hearing present Cognition (Neuro): normal cognition Gait exam (Neuro): Normal gait present Motor exam (neuro): 5/5 motor strength present throughout Sensory Exam: No Sensory deficit (Neuro) Extrem Other: Bilateral lower extremities: +1 nonpitting edema noted. Palpable DP pulses. Feet warm to the touch. No discoloration noted. General: Yes normal to inspection, Yes full ROM, Yes capillary refill normal and Yes normal gait Assessment & Plan Assessment & Plan (1) PAD (peripheral artery disease): Code(s): I73.9 - Peripheral vascular disease, unspecified Category: Medical Plan: Vinh is presenting today on a referral from his PCP for concerns of PAD. He recently had a home assessment and was found to have low ABIs on the left lower extremity. The pt denies any claudication symptoms. We have ordered an bilateral arterial duplex US with ABIs for further evaluation. We discussed that we will have him follow up with us after the US has been performed. We discussed that if he developed any claudication symptoms, to reach out to our office. Thank you for allowing us to participate in the patient's care. If there are any questions or concerns, please do not hesitate to reach out to us. Orders: Orders US CYNDEE complete 1 Week I73.9 - Peripheral vascular disease, unspecified Coding Level of Care Code New Pt Level 4 (06929) Diagnoses PAD (peripheral artery disease) I73.9
== END 2024-08-31 09:58 | disposition home or self-care (01) ==
LOC: HO.HVS 09:42
PROVIDERS: PCP Internal Medicine; Visit Provider Physician Assistant Surgical
DX: I73.9 Peripheral vascular disease, unspecified (principal)
CPT/HCPCS: 99204

== ENCOUNTER → 2024-08-31 09:41 | Outpatient (BNVA) | payer MEDICARE, SELFPAY | PROVIDERS: PCP Internal Medicine; Visit Provider Physician Assistant Surgical | DX: I73.9 Peripheral vascular disease, unspecified (principal) | CPT/HCPCS: 99202 ==

== ENCOUNTER 2024-10-18 12:46 | Outpatient (REF) | payer MEDICARE, SELFPAY ==
--- NOTE | ~2024-10-18 | US_ITS ---
EXAMINATION: Noninvasive assessment of the bilateral lower extremities with ARTERIAL DUPLEX, ANKLE BRACHIAL INDICES (ABIs), and PULSE VOLUME RECORDINGS (PVRs). CLINICAL INFORMATION: Full vascular disease, unspecified. TECHNIQUE: Duplex Doppler techniques with ankle pulse volume recordings, ankle pressure measurements and ankle brachial indices were obtained of the lower extremity arterial system bilaterally. The study was performed only at rest. COMPARISON: None FINDINGS: BRACHIAL PRESSURES: Right: 133 Left: 136 ANKLE PRESSURES: Right: PT 135, DP 138 Left: PT 193, DP more than 200 ANKLE-BRACHIAL INDEX: Right: PT: 0.99 and DP: 1.01 Left: PT: 1.42 and DP: Not calculated. ANKLE PVR WAVEFORMS: Right: No demonstrated Left: No demonstrated US/US CYNDEE complete IMPRESSION: Right le.99 and 1.01 (PT and DP respectively). Left le.42 and not calculated (PT and DP respectively). CYNDEE Reference: - >1.4 = calcified vessels - 0.9 - 1.4 = normal - no significant arterial disease - 0.7 - 0.89 = mild peripheral arterial disease - 0.51 - 0.69 = moderate peripheral arterial disease - 0.50 = severe peripheral arterial disease - < .30 = critical arterial disease Electronically signed by: Yuri Otoole MD 10/19/2024 08:16 AM EDT
== END 2024-10-18 12:47 | disposition home or self-care (01) ==
LOC: HO.US 12:46
PROVIDERS: PCP Internal Medicine; Visit Provider Physician Assistant
DX: I73.9 Peripheral vascular disease, unspecified (principal)
CPT/HCPCS: 93923

== ENCOUNTER → 2024-10-18 12:47 | Outpatient (BNV) | payer MEDICARE, SELFPAY | PROVIDERS: PCP Internal Medicine; Visit Provider Radiology Diagnostic Radiology | DX: I73.9 Peripheral vascular disease, unspecified (principal) | CPT/HCPCS: 93923 ==

== ENCOUNTER 2024-12-21 11:02 | Outpatient (AMB) | payer MEDICARE, SELFPAY ==
--- NOTE | 2024-12-21 11:10 | A.OFFVIS_ITS ---
Intake Visit Reasons: follow up [facility] 10/18/24 Intake Note: Patient presents for follow up arterial US. Arterial US performed on 10/18/24. No complaints. Accompanied by: Self / Same As Patient Allergies No Known Allergies Allergy (Unknown, Verified 12/21/24 11:12) NONE [facility] HPI follow up [facility] 10/18/24: Details: The patient is an 84-year-old male presenting with diabetes mellitus type 2 and peripheral edema. The patient has had diabetes mellitus type 2 for approximately 20 years and denies smoking, which is relevant to his overall vascular health. He originally had a insurance assessment which demonstrated CYNDEE on the right of 0.97 and on the left of 0.35. He now has had noninvasive testing done with us. 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 Elevated PSA Anemia of chronic disease HLD (hyperlipidemia) HTN (hypertension) Diabetes Surgical History H/O heart artery stent Review of Systems Const All systems reviewed & are unremarkable except as noted in HPI and below Reports no additional complaints ENT Reports Normal hearing present Card Denies chest pain, Denies chest pain at rest, Denies chest pain with activity and Denies pedal edema Resp Denies cough GI Denies abdominal pain Musc Denies abnormal gait, Denies muscle cramps and Denies radiating pain into limb Skin/Breast Denies skin ulcer and Denies wounds Neuro Reports Normal hearing present and Denies abnormal gait Psych Reports no additional complaints Physical Exam Const General: cooperative, healthy appearing and comfortable Orientation/consciousness: oriented to person, oriented to place and oriented to time HEENT Head: Yes normal to inspection Neck Neck: Yes normal visual inspection Carotids: no bruits Chest Chest palpation & inspection: normal inspection of the chest Resp Effort & Inspection: normal respiratory effort and able to speak in complete sentences Auscultation: clear to auscultation bilaterally, no crackles, no rales, no rhonchi and no wheezes Cardio Other: Palpable dorsalis pedis pulses Rate: regular rate Rhythm: regular rhythm Heart sounds: S1 normal heart sound present and S2 normal heart sound present Bruits: no carotid bruits Peripheral pulses: Peripheral pulses 2+ throughout GI Inspection: Yes normal to inspection Skin Wounds: no wounds Hair: normal Neuro General: oriented to person, oriented to place and oriented to time Cranial nerves: Yes CN's II-XII intact bilaterally and Yes Normal hearing present Cognition (Neuro): normal cognition Motor exam (neuro): 5/5 motor strength present throughout Extrem Other: venous exam: No significant superficial varicosities or spider telangiectasias, minimal edema General: No clubbing, No cyanosis and No edema Psych Appearance: grossly normal Mental Status: mental status grossly normal Speech and movement: Normal speech and movement present Assessment & Plan Assessment & Plan (1) PAD (peripheral artery disease): Code(s): I73.9 - Peripheral vascular disease, unspecified Category: Medical Plan: In short patient has stable claudication. I did review the pathophysiology of peripheral vascular disease with the patient. In addition we did discuss routine conservative measures including a healthy diet and the importance of exercise and ambulation. We did discuss risk factor modification. The patient will continue to to follow-up with surveillance follow-up in approximately 1 year. Thank you for allowing us to participate in this patient's care. If there are any questions or concerns please do not hesitate to contact us. Orders: Orders US arterial duplex LE BI Today I73.9 - Peripheral vascular disease, unspecified Coding Level of Care Code Est Pt Level 4 (36128) Complex EM visit Add On G2211 Diagnoses PAD (peripheral artery disease) I73.9
== END 2024-12-21 12:17 | disposition home or self-care (01) ==
LOC: HO.HVS 11:03
PROVIDERS: PCP Internal Medicine; Visit Provider Surgery Vascular Surgery
DX: I73.9 Peripheral vascular disease, unspecified (principal)
CPT/HCPCS: 99214; G2211

== ENCOUNTER → 2024-12-21 11:02 | Outpatient (BNVA) | payer MEDICARE, SELFPAY | PROVIDERS: PCP Internal Medicine; Visit Provider Surgery Vascular Surgery | DX: E11.9 Type 2 diabetes mellitus without complications (principal); R60.0 Localized edema; I73.9 Peripheral vascular disease, unspecified | CPT/HCPCS: 99212 ==

== ENCOUNTER 2025-01-12 11:04 | Outpatient (AMB) | payer MEDICARE, SELFPAY ==
--- NOTE | 2025-01-12 10:25 | A.OFFPC_ITS ---
Vital Signs 01/12/25 11:12 Height 5 ft 1.22 in Weight 66.224 kg BMI 27.4 BP 134/68 Blood Pressure Location Lt brachial Position Sitting Respiration 18 Pulse 79 Pulse Source Pulse Oximeter Temp 97.9 F Temp Source Temporal Artery Scan Pulse Oximetry (%) 98 Oxygen Delivery Method Room Air Intake Visit Reasons: 6 Month F/U Complex Care Nurse Practitioner Required: No Accompanied by: Self / Same As Patient Allergies No Known Allergies Allergy (Unknown, Verified 01/12/25 10:25) NONE Tobacco use date assessed: 01/12/25 Fall risk assessment: No Falls in past year Last assessed Fall Risk: 01/12/25 Dental Screening Dental Screen Date: 01/12/25 Did you have a dental visit in the last 12 months?: Yes Did you have a dental problem in the last 6 months where you did not have access to dental care?: No Was dental information given to patient?: Patient has dentist HPI HPI Comments History of Present Illness Details 83 year old male with history of type 2 dm (controlled), htn, hld, PAD, CAD presents to the office for follow up, last visit 08/2024. Reports overall he is feeling well. Type 2 diabetes-has been very well-controlled, A1c 6.1%. Currently taking metformin 1000 mg twice daily. He is compliant with diabetic diet. Eye exams are up-to-date, no complications per his report. No neuropathic symptoms. Does have PAD Hypertension-blood pressure controlled at 134/68. On Toprol 100 mg daily, losartan 25 mg daily, hydrochlorothiazide 12.5 mg daily. Hyperlipidemia-on atorvastatin 20 mg nightly. Last LDL 57 BPH-denies LUTS. Last PSA 8.34, following with [facility] PAD/CAD- had wellness visit at home 08/2024 and RN called reporting CYNDEE results RLE 0.97, LLE .035. He had denied any claudication symptoms. As bilateral lower extremity edema but this has been chronic and is not bothersome per patient. U/S/CYNDEE U/S complete showing right leg 0.99 and 1.01, PT and DP respectively. Left leg 1.42 and not calculated, PT and DP respectively. He was seen in vascular surgery and conservative management was advised. He continues on baby aspirin, atorvastatin 20 mg daily. Blood pressures have been well managed. No chest pain, dyspnea, lightheadedness, palpitations. 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 No sore throat, nasal congestion, rhinorrhea, sinus pain, ear pain Cardiovascular: No chest pain, palpitations. See HPI Respiratory: No shortness of breath, wheezing, cough MSK: No myalgia, back pain Neuro: No headaches, paresthesias. see hpi Skin: No rashes or lesions EXAM: Constitutional - Awake and Alert, No apparent distress Eyes - PERRLA, EOMI Cardiovascular - S1S2, RRR. No murmurs Respiratory - Normal lung expansion, Normal respiratory effort, No respiratory distress, CTA bilaterally Extremities - no calf tenderness bilaterally Skin - Warm/Dry Neurological - Alert & oriented x3. 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 How often do you have a drink containing alcohol?: Never 3. How often do you have six or more drinks on one occasion?: Never Total Score: 0 Physical exam (Primary Care) Vital Signs: Last Vital Signs Temp 97.9 F 01/12/25 11:12 Pulse 79 01/12/25 11:12 Resp 18 01/12/25 11:12 BP 134/68 01/12/25 11:12 Pulse Ox 98 01/12/25 11:12 Oxygen Delivery Method Room Air 01/12/25 11:12 BMI result Body Mass Index 27.4 Tobacco/Smoking Status: Tobacco use Status Tobacco use date assessed 01/12/25 01/12/25 10:26 Patient Tobacco Use Status Former Tobacco user 01/12/25 11:14 e-Cigarette/Vaping Use Never Used 01/12/25 11:14 Coding Level of Care Code Est Pt Level 4 (22683) Complex EM visit Add On G2211 Diagnoses PAD (peripheral artery disease) I73.9 HLD (hyperlipidemia) E78.5 HTN (hypertension) I10 Type 2 diabetes mellitus with peripheral vascular disease E11.51 Assessment & Plan Assessment & Plan (1) PAD (peripheral artery disease): Code(s): I73.9 - Peripheral vascular disease, unspecified Category: Medical Plan: Stable, no claudication. Reviewed U/S/EUS CYNDEE as well as vascular surgery no. Continue with conservative measures. Continue baby aspirin and statin. We will continue with strict blood pressure control (2) HLD (hyperlipidemia): Code(s): E78.5 - Hyperlipidemia, unspecified Category: Medical Plan: At goal. Continue atorvastatin. Diet low in saturated fats and highly processed foods (3) HTN (hypertension): Code(s): I10 - Essential (primary) hypertension Category: Medical Plan: Controlled. Continue metoprolol, losartan, hydrochlorothiazide (4) Type 2 diabetes mellitus with peripheral vascular disease: Code(s): E11.51 - Type 2 diabetes mellitus with diabetic peripheral angiopathy without gangrene Category: Medical Plan: Previously well-controlled. A1c ordered. Discussed if hemoglobin A1c remains in prediabetic range, we will consider reducing metformin. Advised to continue with diabetic diet. Continue with annual eye exams. PAD plan as above Plan Follow-up in the office in 6 months, labs as ordered Orders: Orders Microalbumin, Random (w Creat) Today E11.51 - Type 2 diabetes mellitus with diabetic peripheral angiopathy without gangrene
[2025-01-12 11:12] VITALS: BP 134/68; PULSE 79; RESP 18; TEMP 36.6; O2SAT 98; BMI 27.4
== END 2025-01-12 11:33 | disposition home or self-care (01) ==
LOC: HO.HMCHD 11:05
PROVIDERS: PCP Physician Assistant; Visit Provider Physician Assistant
DX: I73.9 Peripheral vascular disease, unspecified (principal); E78.5 Hyperlipidemia, unspecified; I10 Essential (primary) hypertension; E11.51 Type 2 diabetes mellitus with diabetic peripheral angiopathy without gangrene

== ENCOUNTER → 2025-01-12 11:04 | Outpatient (BNVA) | payer MEDICARE, SELFPAY | PROVIDERS: PCP Internal Medicine; Visit Provider Physician Assistant | DX: I73.9 Peripheral vascular disease, unspecified (principal); E78.5 Hyperlipidemia, unspecified; I10 Essential (primary) hypertension; E11.51 Type 2 diabetes mellitus with diabetic peripheral angiopathy without gangrene; N40.0 Benign prostatic hyperplasia without lower urinary tract symptoms; R53.1 Weakness; B91 Sequelae of poliomyelitis; Z79.82 Long term (current) use of aspirin; Z79.84 Long term (current) use of oral hypoglycemic drugs; Z79.899 Other long term (current) drug therapy | CPT/HCPCS: 99212 ==

== ENCOUNTER 2025-03-07 10:30 | Outpatient (AMB) | payer MEDICARE, SELFPAY ==
--- NOTE | 2025-03-07 10:34 | MHC.PC.OV ---
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 Accompanied by: Self / Same As Patient Allergies No Known Allergies Allergy (Unknown, Verified 03/07/25 10:35) NONE Medication List - Last Reconciled 03/07/25 by ALBERT Lee aspirin 81 mg PO DAILY atorvastatin 20 mg PO BEDTIME 90 days azithromycin (Zithromax Z-Vaughn) For 250 mg dose pack: take 500 mg today (day 1), then 250 mg for 4 days (days 2-5) PO betamethasone dipropionate 0.05% 1 appl topical BID PRN blood sugar diagnostic (Accu-Chek Guide test strips) As directed blood-glucose meter (Accu-Chek Guide Glucose Meter) As directed cholecalciferol (vitamin D3) 25 mcg PO DAILY clotrimazole-betamethasone 1-0.05 % appl topical BID PRN hydrochlorothiazide 12.5 mg PO DAILY 90 days lancets (Accu-Chek Softclix Lancets) As directed losartan 25 mg PO DAILY 90 days metformin 1,000 mg (2 x 500 mg) PO BID 90 days metoprolol succinate ER 100 mg PO DAILY naproxen sodium (Aleve) 220 mg PO ONCE PRN Tobacco use date assessed: 03/07/25 Fall risk assessment: No Falls in past year Last assessed Fall Risk: 03/07/25 Dental Screening Dental Screen Date: 03/07/25 Did you have a dental visit in the last 12 months?: Yes Did you have a dental problem in the last 6 months where you did not have access to dental care?: No HPI HPI Comments History of Present Illness Details History of Present Illness The patient is an 84 year old male with DM, HTN, HLD, PAD and CAD presenting with a cough and rhinorrhea. He reports these symptoms have been present for about two weeks. The cough is productive and is worse at nighttime. The patient denies fever and headache. He reports his symptoms sometimes improve slightly but then return. He has self-treated with Robitussin and NyQuil. He also has a history of a skin rash on his fingers, for which he uses betamethasone cream. He would like a refill. Medical History: - Skin rash on fingers Medications: - Robitussin for cough - NyQuil for cough - Betamethasone 0.05% cream for skin rash Patient was informed and verbally consented to the use of an ambient scribe for clinic note documentation during this visit. [facility] Medical History Type 2 diabetes mellitus with peripheral vascular disease PAD (peripheral artery disease) Coronary artery disease Cataract due to secondary diabetes Elevated PSA Anemia of chronic disease HLD (hyperlipidemia) HTN (hypertension) Diabetes Surgical History H/O heart artery stent Family History (Updated 03/07/25 @ 10:44 by Allison Flowers MA) Mother No problems noted. Father No problems noted. Social History Housing: House Patient Tobacco Use Status: Former Tobacco user e-Cigarette/Vaping Use: Former Use service: No Current occupational status: employed and retired Current occupation: turner off Cognitive needs: No Hearing needs: No Vision needs: Yes (rx marcos) Questionnaire PHQ-9 Over the last 2 weeks, how often have you been bothered by any of the following problems? 1. Little interest or pleasure in doing things: not at all 2. Feeling down, depressed, or hopeless: not at all 3. Trouble falling or staying asleep, or sleeping too much: not at all 4. Feeling tired or having little energy: not at all 5. Poor appetite or overeating: not at all 6. Feeling bad about yourself - or that you are a failure or have let yourself or your family down: not at all 7. Trouble concentrating on things, such as reading the newspaper or watching television: not at all 8. Moving or speaking so slowly that other people could have noticed. Or the opposite - being so fidgety or restless that you have been moving around a lot more than usual: not at all 9. Thoughts that you would be better off or of hurting yourself in some way: not at all Total score: 0 Depression Screening Interpretation: Negative Depression Screening Done: Yes Source: Developed by Drs. Charlie Trinh, Kasandra Godwin, Myles Yanez and colleagues, with an educational juanita from [employer]. Thrive Questionnaire Date Thrive assessed: 03/07/25 I am a: Patient Within the past 12 months, did the food you bought not last and you didn't have the money to get more?: Never true Within the past 12 months, did you worry whether your food would run out before you got money to buy more?: Never true Do you have trouble paying for medicines?: No Do you have trouble getting transportation to medical appointments?: No Do you have trouble paying your heating and electricity bill?: No Do you have trouble taking care of your child, family member or friend?: No Do you have trouble with day-to-day activities such as bathing, preparing meals, shopping, managing finances, etc.?: No Are you currently unemployed and looking for a job?: No Are you interested in more education?: No THRIVE Score: 0 AUDIT C Alcohol Use Questionnaire (AUDIT-C) 1. How often do you have a drink containing alcohol?: Never 3. How often do you have six or more drinks on one occasion?: Never Total Score: 0 PHOEBE-7 AMB Questionnaire PHOEBE-7 Date PHOEBE - 7 assessed: 03/07/25 Feeling nervous, anxious, or on edge: 0 = Not at all Not being able to stop or control worryin = Not at all Worrying too much about different things: 0 = Not at all Trouble relaxin = Not at all Being so restless that it is hard to sit still: 0 = Not at all Becoming easily annoyed or irritable: 0 = Not at all Feeling afraid as if something awful might happen: 0 = Not at all Total PHOEBE-7 score (0-4 normal; 5-9 mild; 10-14 moderate; 15-21 severe): 0 Source: Developed by Drs. Charlie Trinh, Myles Love and colleagues, with an educational juanita from [employer]. Review of Systems Narrative Review of Systems - Constitutional: Denies fever. - Respiratory: Reports a productive cough for approximately two weeks, which is worse at night. - ENT: Reports rhinorrhea. - Denies scratchy throat. - Neurological: Denies headache. Physical exam (Primary Care) Vital Signs: Last Vital Signs Temp 97.4 F 03/07/25 10:36 Pulse 79 03/07/25 10:36 BP 124/72 03/07/25 10:36 Pulse Ox 99 03/07/25 10:36 Oxygen Delivery Method Room Air 03/07/25 10:36 BMI result Body Mass Index 27.6 GENERAL Well developed, Well nourished, in no apparent distress HEENT Head-Normocephalic Eyes- PERRLA, EOMI, Conjuctiva clear, lids WNL Ears- Canals clear, TMs WNL Mouth/Throat-No lesions, no erythema, no exudate Neck- Supple, No lymphadenopathy, thyroid WNL RESPIRATORY Normal I:E, Rhonchi without rales or wheezes CARDIOVASCULAR Regular, rate and rhythm, No murmurs or rubs NEUROLOGICAL Gait slow PSYCHIATRIC Oriented to person, place and time Mood and affect WNL Appearance WNL Speech WNL Thought processes WNL Tobacco/Smoking Status: Tobacco use Status Tobacco use date assessed 03/07/25 03/07/25 10:44 Patient Tobacco Use Status Former Tobacco user 03/07/25 10:44 e-Cigarette/Vaping Use Former Use 03/07/25 10:44 PHQ-9: PHQ-9 Score PHQ-9: Total score 0 03/07/25 10:44 Depression Screening Interpretation: Negative Thrive Assessment: Date of Thrive Assessment Date Thrive assessed 03/07/25 03/07/25 10:44 Narrative Physical Exam - ENT: Oropharynx reveals mild erythema. - No sinus tenderness to palpation. - Respiratory: Lungs have some congestion on auscultation. - No evidence of pneumonia. Coding Level of Care Code Established Pt Est Pt Level 3 (00519) Established Pt Add On Problem Visit Only Patient Type Established Diagnoses Acute bronchitis J20.9 Rash R21 Time Spent (min) 25 Comment Time spent on Chart review, H&P, Patient education and orders. Assessment & Plan Assessment & Plan (1) Acute bronchitis: Code(s): J20.9 - Acute bronchitis, unspecified Plan: Will give ZPak. Patient to continue Robitussin PRN. Patient to follow up as needed if symptoms persist or worsen. (2) Rash: Code(s): R21 - Rash and other nonspecific skin eruption Plan: Will refill Clobetasol. Plan Plan Patient was informed and verbally consented to the use of an ambient scribe for clinic note documentation during this visit. 1. Acute Bronchitis The patient's two-week history of productive cough, rhinorrhea, and lung congestion is consistent with acute bronchitis. A Zithromax (azithromycin) 5-day course will be prescribed, starting with two pills on day one, followed by one pill daily for four days. The patient was advised to continue using Robitussin as needed, maintain adequate fluid intake, and to follow up if his symptoms do not improve. 2. Skin Rash The patient requested a refill for betamethasone 0.05% cream, which he uses for a skin rash on his fingers. A prescription refill for betamethasone 0.05% cream will be sent to his pharmacy. Discussion Notes I informed the patient that his symptoms and exam findings are consistent with bronchitis, not pneumonia. I discussed prescribing a 5-day course of Zithromax and explained the dosing schedule: two pills on day one, then one pill daily for the next four days. I advised him he can continue using Robitussin for his cough and should increase his fluid intake. I also agreed to send a refill of his betamethasone cream for his skin rash to the pharmacy. I informed him to allow the pharmacy about 30 to 60 minutes to prepare his prescriptions and to contact us if his symptoms do not improve. Patient Instructions - Take your antibiotic, Zithromax, for your bronchitis as prescribed. - You will take two pills today, and then one pill each day for the next four days. - You may use Robitussin as needed for your cough. - Make sure to drink plenty of fluids. - A prescription for your betamethasone cream has been sent to your pharmacy. - Please allow the pharmacy about 30 minutes to an hour to get your medications ready. - Contact the office if you do not start feeling better. Medications: New azithromycin (Zithromax Z-Vaughn) For 250 mg dose pack: take 500 mg today (day 1), then 250 mg for 4 days (days 2-5) PO 6 tabs 0RF for bronchitis Changed From betamethasone dipropionate 0.05% topical To betamethasone dipropionate 0.05% 1 appl topical BID PRN 45 grams 0RF for rash
[2025-03-07 10:36] VITALS: BP 124/72; PULSE 79; TEMP 36.3; O2SAT 99; BMI 27.6
== END 2025-03-07 11:09 | disposition home or self-care (01) ==
LOC: HO.HMCHD 10:31
PROVIDERS: PCP Physician Assistant; Visit Provider Physician Assistant Medical
DX: J20.9 Acute bronchitis, unspecified (principal); R21 Rash and other nonspecific skin eruption

== ENCOUNTER → 2025-03-07 10:30 | Outpatient (BNVA) | payer MEDICARE, SELFPAY | PROVIDERS: PCP Physician Assistant; Visit Provider Physician Assistant Medical | DX: J20.9 Acute bronchitis, unspecified (principal); R21 Rash and other nonspecific skin eruption; Z13.31 Encounter for screening for depression; Z13.39 Encounter for screening examination for other mental health and behavioral disorders | CPT/HCPCS: 96127; 99212 ==